=== PATIENT | male | born 1980 | race Caucasian/White ===

== ENCOUNTER → 2016-05-21 | Outpatient (CLI) | payer MEDICARE, OTHER ==
[~2016-05-21] MED LIST: ACETAMINOPHEN TAB 500 MG TAB PO ONE; LORATADINE 10 MG TAB PO ONE; SODIUM CHLORIDE 0.9% 250 ML in EMPTY BAG 1 BAG IV PRN; SODIUM CHLORIDE 0.9% 500 ML in EMPTY BAG 1 BAG IV PRN
[2016-05-21 11:49] LABS: Basophils # (A) 0.1 k/uL (0-0.2); Basophils % (A) 1 %; CH 25.8; CHCM 32.4; Eosinophils # (A) 0.5 k/uL (0-0.7); Eosinophils % (A) 8 %; HCT 40.5 % (39.0-53.0); HDW 2.82; Luc # (Auto) 0.11; Luc % (Auto) 2; Lymphocytes # (A) 1.6 k/uL (1.0-4.8); Lymphocytes % (A) 23 %; MCH 25.6 pg (25.0-35.0); MCV 79.9 fL (80.0-100.0); Mean Platelet Volume 7.8; Monocytes # (A) 0.4 k/uL (0-1.0); Monocytes % (A) 6 %; Neutrophils # (A) 4.1 k/uL (1.3-7.7); Neutrophils % (A) 61 %; RBC 5.07 m/uL (4.30-5.90); RDW 13.7 % (11.5-15.5); WBC 6.8 k/uL (3.8-10.6); WBC (Perox) 6.78
[2016-05-21 12:17] LABS: Anion Gap 13 mmol/L; Calcium 10.1 mg/dL (8.4-10.2); Carbon Dioxide 24 mmol/L (22-30); Chloride 102 mmol/L (98-107); Glucose 122 mg/dL (74-99); Non-African American GFR(MDRD) >60 (>60 ml/min/1.73 sqM); Sodium 139 mmol/L (137-145); Total Bilirubin 0.6 mg/dL (0.2-1.3); Total Protein 6.9 g/dL (6.3-8.2)
[2016-05-21 12:28] LABS: ALT 70 U/L (21-72); AST 71 U/L (17-59); Alkaline Phosphatase 74 U/L (38-126); Blood Urea Nitrogen 11 mg/dL (9-20); Potassium 4.5 mmol/L (3.5-5.1)
[2016-05-21 13:09] VITALS: BP 116/74; PULSE 81; RESP 18
== END | disposition home or self-care (01) ==
LOC: PROCWHC3 11:07
PROVIDERS: ATTEND Internal Medicine Gastroenterology
DX: K50.013 Crohn's disease of small intestine with fistula (principal)
CPT/HCPCS: 80053; 85025; 96413; 96415; J1745

== ENCOUNTER → 2016-07-02 | Outpatient (CLI) | payer MEDICARE, OTHER ==
[~2016-07-02] MED LIST changes: +ACETAMINOPHEN TAB 500 MG TAB PO NR; -ACETAMINOPHEN TAB 500 MG TAB PO ONE; +LORATADINE 10 MG TAB PO NR; -LORATADINE 10 MG TAB PO ONE
[2016-07-02 12:37] VITALS: TEMP 97.8
[2016-07-02 13:38] VITALS: RESP 16
[2016-07-02 14:24] VITALS: BP 109/69; PULSE 89
== END ==
LOC: PROCWHC3 12:16
PROVIDERS: ATTEND Internal Medicine Gastroenterology
DX: K50.013 Crohn's disease of small intestine with fistula (principal)
CPT/HCPCS: 96361; 96413; 96415; J1745

== ENCOUNTER → 2016-07-07 | Outpatient (CLI) | payer MEDICARE, OTHER ==
--- NOTE | 2016-07-07 21:34 | CONS ---
DATE OF CONSULTATION: REASON FOR CONSULTATION: Sleep apnea and nocturnal oxygen desaturations. Primary care physician is Dr. Ricardo Caal 36-year-old male patient with a complicated history of Crohn's disease requiring multiple bowel surgeries for complications of bowel perforation and fistula formation. The patient is known to me, I have taken care of him during his previous hospital stay for respiratory difficulties and bowel complications. He is suspected to have also diaphragmatic weakness, which is attributed to his bowel surgeries and multiple bowel interventions. He has also some mild bronchial asthma for which he is maintained on Qvar. Recently the patient was hospitalized for an acute bronchitis for which he has recovered and during his hospital stay he was having some nocturnal oxygen desaturations. As such, he was asked to come into the sleep center for a sleep evaluation. He is quite anxious at baseline. He ( ) some snoring yet. He has no witnessed apneas. No chronic hypersomnia or sleepiness. He grinds his teeth, and he has poor dental hygiene. He wakes up with a dry mouth. He goes to bed around 2:00 a.m. and wakes up between 8:00 a.m. in the morning and sometimes he sleeps up until noon. He does not keep a regular sleep-wake cycle. He is currently on disability and he spent most of his time in bed and as such, he has disturbed sleep schedule. On average, he takes around 6 hours of sleep. No sleepwalking. No sleeptalking. No parasomnias. No sleep paralysis. No major hypersomnia or sleepiness during the day. He does not fall asleep during undesired times. He has no leg edema in the lower extremities. No signs of right-sided heart failure. PAST MEDICAL HISTORY: 1. Complicated Crohn's disease. 2. Generalized anxiety disorder. 3. Hyperlipidemia. 4. Bronchial asthma. 5. Diabetes mellitus. 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 Removal of a rectum and creation of a J-pouch in October 2000, tonsillectomy and adenoidectomy in 2004, large incisional hernia repair and reversal of ostomy in November 2004, creation of ileostomy and release of adhesions on 07/23/2009. The patient has also had further release of adhesions on 02/03/2011 and he has had nasal septal reconstruction surgery on 04/20/2012. Vaccinations up-to-date, flu shot, pneumonia shot and tetanus shot. Outpatient medication list includes: 1. Promethazine on a p.r.n. basis. 2. Metoprolol 50 mg p.o. daily. 3. Ultram 100 mg p.o. daily as needed. 4. Diazepam 5 mg p.o. twice a day. 5. Zocor 20 mg p.o. daily. 6. Claritin 10 mg p.o. daily. 7. Lansoprazole 30 mg twice a day. 8. Qvar 80 mcg 2 puffs twice a day. 9. Remicade every 6 weeks. 10. Tradjenta 5 mg p.o. daily. 11. Pro-air inhaler. 12. Flonase nasal spray. 13. Cymbalta 60 mg p.o. daily. SOCIAL HISTORY: The patient is a nonsmoker, no history of alcohol, no history of IV drugs. FAMILY HISTORY: Noncontributory. Negative for any sleep breathing disorder. REVIEW OF SYSTEMS: Twelve-point review of systems was done. Positive findings as mentioned above in the history of present illness. He has chronic exertional dyspnea, chronic bowel difficulties as mentioned above. Recent bronchitis was also mention by the patient from which is completely recovered. His current vital signs are as follows: His temperature is 97.8, pulse 88, respirations 16, and blood pressure is 97/73, temperature 97.1. Height is 66 inches. Weight 166 and BMI is 26.7. Neck size 14-1/2 inches. [place] score is 11, saturation 95% on room air. GENERAL APPEARANCE: Calm, comfortable. HEENT: Poor dental hygiene. There is no goiter, neck masses. No thrush. LUNGS: Diminished breath sounds bilaterally especially in the lung bases. A few scattered expiratory wheeze. HEART: Heart sounds are regular rate and rhythm. Normal S1, S2, no S3. No murmurs. ABDOMEN: Scars of multiple abdominal surgery over the anterior abdominal wall. No direct tenderness, no rebound or guarding. He has stoma. EXTREMITIES: There is no edema. No cyanosis, or clubbing. IMPRESSION: 1. Suspect nocturnal oxygen desaturations/hypoventilation with possible sleep breathing disorder. The patient will need further investigation. 2. Bronchial asthma. 3. 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 4. Complicated Crohn's disease with multiple abdominal surgeries as mentioned. 5. Hyperlipidemia. 6. Generalized anxiety disorder, maintained on a combination of Cymbalta and diazepam. 7. Diabetes mellitus. PLAN: 1. Proceed with a home sleep study to evaluate for nocturnal apneas, hypopneas or desaturations. 2. Will review the results and make further recommendations based on the findings.
== END | disposition home or self-care (01) ==
LOC: SLEEP 14:58
PROVIDERS: ATTEND Internal Medicine Critical Care Medicine
DX: G47.33 Obstructive sleep apnea (adult) (pediatric) (principal); F41.1 Generalized anxiety disorder; E78.5 Hyperlipidemia, unspecified; G47.10 Hypersomnia, unspecified; E11.9 Type 2 diabetes mellitus without complications; K50.90 Crohn's disease, unspecified, without complications; J45.909 Unspecified asthma, uncomplicated; Z79.84 Long term (current) use of oral hypoglycemic drugs; Z79.899 Other long term (current) drug therapy
CPT/HCPCS: 99211; 99214

== ENCOUNTER → 2016-08-13 | Outpatient (CLI) | payer MEDICARE, OTHER ==
[~2016-08-13] MED LIST changes: -ACETAMINOPHEN TAB 500 MG TAB PO NR; +ACETAMINOPHEN TAB 500 MG TAB PO ONE; -LORATADINE 10 MG TAB PO NR; +LORATADINE 10 MG TAB PO ONE
[2016-08-13 10:07] VITALS: RESP 18; TEMP 97.9
[2016-08-13 11:43] VITALS: BP 97/64; PULSE 67
== END | disposition home or self-care (01) ==
LOC: PROCWHC3 09:46
PROVIDERS: ATTEND Internal Medicine Gastroenterology
DX: K50.013 Crohn's disease of small intestine with fistula (principal)
CPT/HCPCS: 96361; 96413; 96415; J1745

== ENCOUNTER → 2016-08-17 | Day surgery (SDC) | payer MEDICARE, OTHER ==
[~2016-08-17] MED LIST changes: -ACETAMINOPHEN TAB 500 MG TAB PO ONE; +GLUCAGON 1 MG/ML VIAL IM STA; -LORATADINE 10 MG TAB PO ONE; -SODIUM CHLORIDE 0.9% 250 ML in EMPTY BAG 1 BAG IV PRN; -SODIUM CHLORIDE 0.9% 500 ML in EMPTY BAG 1 BAG IV PRN
[2016-08-17 09:54] VITALS: BP 130/82; PULSE 86; RESP 14; TEMP 98.1
[2016-08-17 09:55] LABS: Blood Urea Nitrogen 11 mg/dL (9-20); Non-African American GFR(MDRD) >60 (>60 ml/min/1.73 sqM)
--- NOTE | 2016-08-18 21:40 | MR ---
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 Crohn's disease. Technique: Multiplanar, multisequence images of the abdomen and pelvis before and after administratio n of 15 mL IV MultiHance. 2 bottles of 300 mL VoLumen and 300 mL water was administered orally. Patie nt was unable to ingest the last bottle of VoLumen. Exam cannot be performed in the prone position du e to patient's ostomy. FINDINGS: Patient's right lower quadrant ileostomy is again demonstrated status post colectomy. The ileostomy p arastomal hernia appears to have enlarged previously measuring 8.9 x 6.7 cm and now measuring 10.4 x 7.7 cm. Redemonstrated is the small focal 1.6 cm focal outpouching along the right lateral aspect of the ileo stomy loop just as it traverses across the abdominal wall musculature, coronal image 174 series 701 a nd axial image 89 series 801. A subtle linear enhancing tract is again noted extending from here to t he to the skin surface at the right lateral margin of the parastomal hernia. The ileostomy loop shows an area of close contact to the exterior surface of the parastomal hernia ju st distally, located to the right of the stoma which could represent a second tiny fistula, coronal s eries 701, image 90. Some patulous upper mid abdominal anterior small bowel loops are unchanged measuring up to 3.8 cm. There is respiratory motion artifact due to supine imaging with clustered, collapsed jejunal loops in the far left abdomen limiting their evaluation. There are a couple left upper quadrant small bowel loops that show mucosal enhancement to a slightly greater degree then other surrounding small bowel loops, for example, axial image 59 of series 901. N o alejandro bowel wall thickening is identified. Mesenteric lymphadenopathy measures up to 1 cm, more numerous within the right lower quadrant, relati vely unchanged from prior. Visualized gallbladder, left kidney, spleen, pancreas, and adrenal glands show no gross abnormality. Redemonstrated 2 cm cyst upper pole right kidney. IMPRESSION: 1. The curvilinear area of enhancement extending from the right lateral aspect of the ileostomy loop to the skin surface along the lateral margin of the parastomal hernia is again seen though the degree of enhancement has decreased. Correlate for persistent enterocutaneous fistula versus interval fistu la healing with scar. 2. Just distally along the ileostomy loop, there is an area of contact to the exterior surface of the parastomal hernia which could represent a second tiny enterocutaneous fistula. 3. Interval enlargement of the patient's parastomal hernia now measuring 10.4 cm versus 8.9 cm, previ ously. 4. Jejunal loops in the left abdomen are clustered and collapsed limiting their evaluation. A couple short segments show slightly greater degree of mucosal enhancement than adjacent bowel and mild activ e inflammation is difficult to exclude here. There is no alejandro abnormal bowel wall thickening.
== END ==
LOC: RADMRIMAIN 09:10
PROVIDERS: ATTEND Internal Medicine Gastroenterology
DX: K63.2 Fistula of intestine (principal); Z93.2 Ileostomy status
CPT/HCPCS: 82565; 84520; 72197; 74183; J1610; A9577

== ENCOUNTER → 2016-09-24 | Outpatient (CLI) | payer MEDICARE, OTHER ==
[~2016-09-24] MED LIST changes: +ACETAMINOPHEN TAB 500 MG TAB PO ONE; -GLUCAGON 1 MG/ML VIAL IM STA; +LORATADINE 10 MG TAB PO ONE; +SODIUM CHLORIDE 0.9% 250 ML in EMPTY BAG 1 BAG IV PRN; +SODIUM CHLORIDE 0.9% 500 ML in EMPTY BAG 1 BAG IV PRN
[2016-09-24 10:04] VITALS: TEMP 97.9
[2016-09-24 11:30] VITALS: BP 112/66; PULSE 59; RESP 15
== END ==
LOC: PROCWHC3 09:45
PROVIDERS: ATTEND Internal Medicine Gastroenterology
DX: Z51.11 Encounter for antineoplastic chemotherapy (principal); K50.013 Crohn's disease of small intestine with fistula
CPT/HCPCS: 96413; 96415; J1745

== ENCOUNTER → 2016-11-05 | Outpatient (CLI) | payer MEDICARE, OTHER ==
[~2016-11-05] MED LIST changes: +ACETAMINOPHEN TAB 500 MG TAB PO NR; -ACETAMINOPHEN TAB 500 MG TAB PO ONE; +LORATADINE 10 MG TAB PO NR; -LORATADINE 10 MG TAB PO ONE
[2016-11-05 12:37] VITALS: TEMP 98
[2016-11-05 13:57] VITALS: BP 111/73; PULSE 75; RESP 18
== END ==
LOC: PROCWHC3 11:42
PROVIDERS: ATTEND Internal Medicine Gastroenterology
DX: Z51.11 Encounter for antineoplastic chemotherapy (principal); K50.013 Crohn's disease of small intestine with fistula
CPT/HCPCS: 96413; 96415; J1745

== ENCOUNTER → 2016-12-31 | Outpatient (CLI) | payer MEDICARE, OTHER ==
[~2016-12-31] MED LIST changes: -ACETAMINOPHEN TAB 500 MG TAB PO NR; +ACETAMINOPHEN TAB 500 MG TAB PO PRN; -LORATADINE 10 MG TAB PO NR; -SODIUM CHLORIDE 0.9% 250 ML in EMPTY BAG 1 BAG IV PRN
[2016-12-31 11:25] VITALS: TEMP 98.2
[2016-12-31 13:42] VITALS: BP 103/66; PULSE 85; RESP 18
== END | disposition home or self-care (01) ==
LOC: PROCWHC3 11:04
PROVIDERS: ATTEND Internal Medicine Gastroenterology
DX: K50.013 Crohn's disease of small intestine with fistula (principal)
CPT/HCPCS: 96413; 96415; J1745

== ENCOUNTER → 2017-02-11 | Outpatient (CLI) | payer MEDICARE, OTHER ==
[~2017-02-11] MED LIST changes: -ACETAMINOPHEN TAB 500 MG TAB PO PRN; +INFLIXIMAB-DYYB 800 MG in SODIUM CHLORIDE 0.9% 250 ML IV ONE
[2017-02-11 11:10] VITALS: TEMP 97.5
[2017-02-11 11:32] LABS: Basophils # (A) 0.1 k/uL (0-0.2); Basophils % (A) 1 %; CH 25.6; CHCM 31.1; Eosinophils # (A) 0.5 k/uL (0-0.7); Eosinophils % (A) 6 %; HCT 42.5 % (39.0-53.0); HDW 2.66; HGB 13.7 gm/dL (13.0-17.5); Hypochromasia Slight; Luc # (Auto) 0.25; Luc % (Auto) 3; Lymphocytes # (A) 1.4 k/uL (1.0-4.8); Lymphocytes % (A) 19 %; MCH 26.6 pg (25.0-35.0); MCHC 32.2 g/dL (31.0-37.0); MCV 82.5 fL (80.0-100.0); Mean Platelet Volume 7.2; Monocytes # (A) 0.5 k/uL (0-1.0); Monocytes % (A) 7 %; Neutrophils # (A) 4.6 k/uL (1.3-7.7); Neutrophils % (A) 63 %; RBC 5.15 m/uL (4.30-5.90); RDW 14.1 % (11.5-15.5); WBC 7.2 k/uL (3.8-10.6); WBC (Perox) 7.21
[2017-02-11 12:08] LABS: ALT 109 U/L (21-72); AST 133 U/L (17-59); Alkaline Phosphatase 92 U/L (38-126); Anion Gap 14 mmol/L; Blood Urea Nitrogen 15 mg/dL (9-20); C Reactive Protein 14.4 mg/L (<10.0); Carbon Dioxide 23 mmol/L (22-30); Chloride 102 mmol/L (98-107); Glucose 162 mg/dL (74-99); Non-African American GFR(MDRD) >60 (>60 ml/min/1.73 sqM); Potassium 4.5 mmol/L (3.5-5.1); Sodium 139 mmol/L (137-145); Total Bilirubin 0.5 mg/dL (0.2-1.3); Total Protein 7.5 g/dL (6.3-8.2)
[2017-02-11 12:21] VITALS: RESP 18
[2017-02-11 12:52] VITALS: BP 112/70; PULSE 81
[2017-02-11 12:55] LABS: Erythrocyte Sedimentation Rate 15 mm/hr (0-15)
== END | disposition home or self-care (01) ==
LOC: PROCWHC3 10:56
PROVIDERS: ATTEND Internal Medicine Gastroenterology
DX: K50.013 Crohn's disease of small intestine with fistula (principal)
CPT/HCPCS: 80053; 85652; 85025; 86140; 96413; 96415; 36415; Q5102

== ENCOUNTER → 2017-03-24 | Outpatient (CLI) | payer MEDICARE, OTHER ==
[2017-03-31 15:11] LABS: Mis test requested (Blood) Infliximab Quant
== END | disposition home or self-care (01) ==
LOC: LABWHC1 16:36
PROVIDERS: ATTEND Internal Medicine
DX: K50.913 Crohn's disease, unspecified, with fistula (principal); R19.7 Diarrhea, unspecified; R19.8 Other specified symptoms and signs involving the digestive system and abdomen; Z93.2 Ileostomy status
CPT/HCPCS: 36415; 80299

== ENCOUNTER → 2017-03-25 | Outpatient (CLI) | payer MEDICARE, OTHER ==
[2017-03-25 11:23] VITALS: TEMP 97.5
[2017-03-25 11:38] LABS: Anisocytosis Slight; CH 25.5; CHCM 30.8; HCT 41.9 % (39.0-53.0); HDW 2.37; HGB 13.4 gm/dL (13.0-17.5); Hypochromasia Slight; MCH 26.6 pg (25.0-35.0); MCV 83.1 fL (80.0-100.0); Mean Platelet Volume 7.4; RBC 5.05 m/uL (4.30-5.90); WBC 7.9 k/uL (3.8-10.6)
[2017-03-25 11:49] LABS: ALT 132 U/L (21-72); AST 129 U/L (17-59); Alkaline Phosphatase 84 U/L (38-126); Anion Gap 11 mmol/L; Blood Urea Nitrogen 19 mg/dL (9-20); C Reactive Protein 5.4 mg/L (<10.0); Calcium 9.8 mg/dL (8.4-10.2); Carbon Dioxide 25 mmol/L (22-30); Chloride 103 mmol/L (98-107); Glucose 151 mg/dL (74-99); Non-African American GFR(MDRD) >60 (>60 ml/min/1.73 sqM); Potassium 3.8 mmol/L (3.5-5.1); Sodium 139 mmol/L (137-145); Total Bilirubin 0.3 mg/dL (0.2-1.3); Total Protein 7.3 g/dL (6.3-8.2)
[2017-03-25 12:25] VITALS: PULSE 72
[2017-03-25 12:56] LABS: Erythrocyte Sedimentation Rate 12 mm/hr (0-15)
[2017-03-25 13:15] VITALS: BP 110/65; RESP 16
== END | disposition home or self-care (01) ==
LOC: PROCWHC3 11:16
PROVIDERS: ATTEND Internal Medicine Gastroenterology
DX: K50.013 Crohn's disease of small intestine with fistula (principal)
CPT/HCPCS: 80053; 85652; 85027; 86140; 96413; 96415; 36415; Q5102

== ENCOUNTER → 2017-05-28 | Outpatient (CLI) | payer MEDICARE, OTHER ==
[2017-05-28 17:12] LABS: Anisocytosis Slight; Basophils # (A) 0.1 k/uL (0-0.2); Basophils % (A) 1 %; Eosinophils # (A) 0.2 k/uL (0-0.7); Eosinophils % (A) 2 %; HCT 43.4 % (39.0-53.0); HGB 13.4 gm/dL (13.0-17.5); Hypochromasia Slight; Lymphocytes # (A) 2.2 k/uL (1.0-4.8); Lymphocytes % (A) 23 %; MCH 27.1 pg (25.0-35.0); MCHC 30.8 g/dL (31.0-37.0); Mean Platelet Volume 7.5; Monocytes # (A) 0.6 k/uL (0-1.0); Monocytes % (A) 6 %; Neutrophils # (A) 5.9 k/uL (1.3-7.7); Neutrophils % (A) 64 %; Platelet Count 432 k/uL (150-450); RBC 4.92 m/uL (4.30-5.90); WBC 9.2 k/uL (3.8-10.6)
[2017-05-28 17:17] LABS: MCV 88.2 fL (80.0-100.0)
[2017-05-28 17:42] LABS: ALT 45 U/L (21-72); AST 27 U/L (17-59); Albumin 4.3 g/dL (3.5-5.0); Alkaline Phosphatase 71 U/L (38-126); Anion Gap 17 mmol/L; Blood Urea Nitrogen 13 mg/dL (9-20); Calcium 10.1 mg/dL (8.4-10.2); Carbon Dioxide 24 mmol/L (22-30); Chloride 100 mmol/L (98-107); Glucose 143 mg/dL (74-99); Potassium 3.7 mmol/L (3.5-5.1); Sodium 141 mmol/L (137-145); Total Bilirubin 0.4 mg/dL (0.2-1.3); Total Protein 7.5 g/dL (6.3-8.2)
== END | disposition home or self-care (01) ==
LOC: LABWHC1 16:30
PROVIDERS: ATTEND Internal Medicine
DX: K50.913 Crohn's disease, unspecified, with fistula (principal); Z51.81 Encounter for therapeutic drug level monitoring
CPT/HCPCS: 36415; 80053; 85025

== ENCOUNTER → 2017-06-03 | Outpatient (CLI) | payer MEDICARE, OTHER ==
[2017-06-03 12:04] VITALS: TEMP 98
[2017-06-03 12:46] VITALS: RESP 14
[2017-06-03 13:42] VITALS: BP 108/70; PULSE 85
== END | disposition home or self-care (01) ==
LOC: PROCWHC3 12:00
PROVIDERS: ATTEND Internal Medicine Gastroenterology
DX: K50.013 Crohn's disease of small intestine with fistula (principal)
CPT/HCPCS: 96413; 96415; Q5102

== ENCOUNTER → 2017-07-15 | Outpatient (CLI) | payer MEDICARE, OTHER ==
[2017-07-15 12:43] VITALS: RESP 16
[2017-07-15 13:14] LABS: Basophils # (A) 0.1 k/uL (0-0.2); Basophils % (A) 1 %; Eosinophils # (A) 0.2 k/uL (0-0.7); Eosinophils % (A) 3 %; HCT 38.1 % (39.0-53.0); HGB 12.7 gm/dL (13.0-17.5); Lymphocytes # (A) 1.4 k/uL (1.0-4.8); Lymphocytes % (A) 19 %; MCH 28.5 pg (25.0-35.0); MCHC 33.5 g/dL (31.0-37.0); Mean Platelet Volume 7.5; Monocytes # (A) 0.5 k/uL (0-1.0); Monocytes % (A) 7 %; Neutrophils # (A) 5.1 k/uL (1.3-7.7); Neutrophils % (A) 70 %; Platelet Count 302 k/uL (150-450); RBC 4.48 m/uL (4.30-5.90); RDW 15.2 % (11.5-15.5); WBC 7.4 k/uL (3.8-10.6)
[2017-07-15 13:22] LABS: ALT 29 U/L (21-72); AST 54 U/L (17-59); Alkaline Phosphatase 52 U/L (38-126); Anion Gap 13 mmol/L; Blood Urea Nitrogen 13 mg/dL (9-20); C Reactive Protein 8.3 mg/L (<10.0); Calcium 8.2 mg/dL (8.4-10.2); Carbon Dioxide 28 mmol/L (22-30); Chloride 101 mmol/L (98-107); Glucose 165 mg/dL (74-99); Potassium 3.5 mmol/L (3.5-5.1); Sodium 142 mmol/L (137-145); Total Bilirubin 0.4 mg/dL (0.2-1.3); Total Protein 6.6 g/dL (6.3-8.2)
[2017-07-15 14:19] VITALS: BP 108/70; PULSE 85
[2017-07-15 15:29] LABS: Erythrocyte Sedimentation Rate 18 mm/hr (0-15)
== END ==
LOC: PROCWHC3 12:03
PROVIDERS: ATTEND Internal Medicine Gastroenterology
DX: K50.013 Crohn's disease of small intestine with fistula (principal)
CPT/HCPCS: 80053; 85652; 85025; 86140; 96413; 96415; 36415; Q5102

== ENCOUNTER → 2017-08-24 | Outpatient (CLI) | payer MEDICARE, OTHER ==
[2017-08-24 15:26] LABS: Cholesterol 202 mg/dL (<200); HDL Cholesterol 61 mg/dL (40-60); LDL Cholesterol,Calculated 87 mg/dL (0-99); Triglycerides 268 mg/dL (<150)
== END | disposition home or self-care (01) ==
LOC: LABWHC1 14:10
PROVIDERS: ATTEND Family Medicine
DX: E11.9 Type 2 diabetes mellitus without complications (principal)
CPT/HCPCS: 36415; 80061

== ENCOUNTER → 2017-08-26 | Outpatient (CLI) | payer MEDICARE, OTHER ==
[2017-08-26 12:37] VITALS: TEMP 98.5
[2017-08-26 13:48] VITALS: BP 104/68; PULSE 72; RESP 16
== END | disposition home or self-care (01) ==
LOC: PROCWHC3 12:00
PROVIDERS: ATTEND Internal Medicine Gastroenterology
DX: K50.013 Crohn's disease of small intestine with fistula (principal)
CPT/HCPCS: 96413; 96415; Q5103

== ENCOUNTER → 2017-10-07 | Outpatient (CLI) | payer MEDICARE, OTHER ==
[~2017-10-07] MED LIST changes: +INFLIXIMAB-DYYB 800 MG in SODIUM CHLORIDE 0.9% 250 ML IV NR; -INFLIXIMAB-DYYB 800 MG in SODIUM CHLORIDE 0.9% 250 ML IV ONE
[2017-10-07 13:31] VITALS: TEMP 97.8
[2017-10-07 13:51] LABS: Basophils # (A) 0.1 k/uL (0-0.2); Basophils % (A) 1 %; Eosinophils # (A) 0.3 k/uL (0-0.7); Eosinophils % (A) 5 %; HCT 42.2 % (39.0-53.0); HGB 14.2 gm/dL (13.0-17.5); Lymphocytes # (A) 1.2 k/uL (1.0-4.8); Lymphocytes % (A) 21 %; MCH 29.1 pg (25.0-35.0); MCHC 33.7 g/dL (31.0-37.0); MCV 86.4 fL (80.0-100.0); Mean Platelet Volume 6.9; Monocytes # (A) 0.5 k/uL (0-1.0); Monocytes % (A) 9 %; Neutrophils # (A) 3.4 k/uL (1.3-7.7); Neutrophils % (A) 60 %; Platelet Count 336 k/uL (150-450); RBC 4.88 m/uL (4.30-5.90); RDW 14.2 % (11.5-15.5); WBC 5.6 k/uL (3.8-10.6)
[2017-10-07 14:14] LABS: ALT 43 U/L (21-72); AST 53 U/L (17-59); Albumin 4.4 g/dL (3.5-5.0); Alkaline Phosphatase 60 U/L (38-126); Anion Gap 16 mmol/L; Blood Urea Nitrogen 14 mg/dL (9-20); C Reactive Protein <5.0 mg/L (<10.0); Carbon Dioxide 22 mmol/L (22-30); Chloride 101 mmol/L (98-107); Glucose 137 mg/dL (74-99); Potassium 4.2 mmol/L (3.5-5.1); Sodium 139 mmol/L (137-145); Total Bilirubin 0.4 mg/dL (0.2-1.3); Total Protein 6.9 g/dL (6.3-8.2)
[2017-10-07 15:05] VITALS: BP 107/65; PULSE 73; RESP 18
[2017-10-07 16:38] LABS: Erythrocyte Sedimentation Rate 18 mm/hr (0-15)
== END | disposition home or self-care (01) ==
LOC: PROCWHC3 13:02
PROVIDERS: ATTEND Internal Medicine Gastroenterology
DX: K50.013 Crohn's disease of small intestine with fistula (principal)
CPT/HCPCS: 80053; 85652; 85025; 86140; 96413; 96415; Q5103

== ENCOUNTER → 2017-12-07 | Outpatient (CLI) | payer MEDICARE, OTHER | END | disposition home or self-care (01) | LOC: LABWHC1 13:18 | PROVIDERS: ATTEND Internal Medicine | DX: K50.913 Crohn's disease, unspecified, with fistula (principal) | CPT/HCPCS: 36415 ==

== ENCOUNTER 2018-03-28 11:14 | Day surgery (SDC) | payer MEDICARE, OTHER ==
[2018-03-23 13:24] VITALS: BMI 26.6
[~2018-03-28 11:14] MED LIST changes: +DEXAMETHASONE SOD PHOSPHATE 10 MG/ML 1 ML VIAL IV ONE; -INFLIXIMAB-DYYB 800 MG in SODIUM CHLORIDE 0.9% 250 ML IV NR; +LACTATED RINGERS 1,000 ML IV SCH; +MIDAZOLAM 2 MG/2 ML VIAL IV PRN; +ONDANSETRON 4 MG/2 ML VIAL IVP ONE; +SCOPOLAMINE 1.5MG/72HR PATCH TRANSDERM ONE; -SODIUM CHLORIDE 0.9% 500 ML in EMPTY BAG 1 BAG IV PRN; +fentaNYL (PF) 50 MCG/ML 2 ML AMP IV PRN
[2018-03-28 11:48] VITALS: RESP 16; TEMP 97.1
[2018-03-28] MEDS ORDERED: LIDOCAINE 1% 20 ML VIAL (10MG/ML) FOR IV START INTRADERMA ONE (11:50)
[2018-03-28 11:52] LABS: Glucose,Whole Blood 130 mg/dL (75-99)
[2018-03-28] MEDS ORDERED: fentaNYL (PF) 50 MCG/ML 2 ML AMP ONE (12:35)
[2018-03-28] MEDS ORDERED: LIDOCAINE 1% INJ 10MG/ML (20 ML MDV) ONE (12:35)
[2018-03-28] MEDS ORDERED: PROPOFOL 10 MG/ML 20 ML VIAL IV ONE (12:35)
[2018-03-28] MEDS ORDERED: MIDAZOLAM 2 MG/2 ML VIAL ONE (12:35)
[2018-03-28] MEDS ORDERED: BUPIVACAINE (PF) 0.25% 30 ML VIAL SQ ONE (12:41)
[2018-03-28] MEDS ORDERED: LIDOCAINE 2% INJ 20 MG/ML SQ ONE (12:41)
[2018-03-28 13:26] VITALS: BP 100/63; PULSE 74
--- NOTE | 2018-03-28 17:18 | OP ---
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 FINAL DIAGNOSIS: Status post partial amputation right middle finger tip with clinical nail deformity. PROCEDURE PERFORMED: Permanent nail ablation, right middle finger. PROCEDURE: The patient is taken operative suite, given IV sedation. I did a digital block to his right middle finger with combination of Xylocaine and Marcaine both without epinephrine. His hand was then prepped and draped in usual manner. A Ekaterina drain was used as a proximal tourniquet. The proximal fold was incised on either corner in an oblique manner. It was then dissected and retracted proximally. This exposed the entire germinal cell matrix. This was then incised down to the periosteum and discarded. A small rongeur was used to further debride the area in an attempt to remove all possible areas of nail growth. Collateral ligament release was done at the DIP joint in an attempt to correct the flexion contracture. This was fixed beyond this release and therefore was abandoned. The tourniquet was released. Hemostasis was satisfactory. The proximal nail fold was then sewn to the sterile matrix with interrupted 5-0 nylon suture. Soft bulky dressing was applied. He is taken recovery room in satisfactory condition. MMODL / IJN: [id number] /
== END 2018-03-28 13:59 ==
LOC: OR 11:14
PROVIDERS: ATTEND Orthopaedic Surgery Hand Surgery
DX: L60.8 Other nail disorders (principal); R68.3 Clubbing of fingers; I10 Essential (primary) hypertension; E11.9 Type 2 diabetes mellitus without complications; Z79.84 Long term (current) use of oral hypoglycemic drugs; H91.90 Unspecified hearing loss, unspecified ear; H40.9 Unspecified glaucoma; J98.4 Other disorders of lung; K21.9 Gastro-esophageal reflux disease without esophagitis; K50.90 Crohn's disease, unspecified, without complications; F41.9 Anxiety disorder, unspecified; H81.09 Meniere's disease, unspecified ear; J45.909 Unspecified asthma, uncomplicated; Z79.51 Long term (current) use of inhaled steroids; Z79.899 Other long term (current) drug therapy; Z88.5 Allergy status to narcotic agent; Z88.0 Allergy status to penicillin; Z88.2 Allergy status to sulfonamides; Z88.8 Allergy status to other drugs, medicaments and biological substances; Z88.6 Allergy status to analgesic agent; Z88.1 Allergy status to other antibiotic agents; Z91.041 Radiographic dye allergy status
CPT/HCPCS: 11730; J2001 ×2; J2250; J2405; J3010; J2704

== ENCOUNTER → 2018-07-15 | Outpatient (CLI) | payer MEDICARE, OTHER ==
[2018-07-15 16:50] LABS: Basophils # (A) 0.1 k/uL (0-0.2); Basophils % (A) 1 %; Eosinophils # (A) 0.3 k/uL (0-0.7); Eosinophils % (A) 3 %; HGB 13.7 gm/dL (13.0-17.5); Hypochromasia Slight; Lymphocytes # (A) 2.3 k/uL (1.0-4.8); Lymphocytes % (A) 20 %; MCH 28.1 pg (25.0-35.0); MCHC 31.7 g/dL (31.0-37.0); MCV 88.6 fL (80.0-100.0); Mean Platelet Volume 6.2; Monocytes # (A) 0.9 k/uL (0-1.0); Monocytes % (A) 8 %; Neutrophils # (A) 7.5 k/uL (1.3-7.7); Neutrophils % (A) 66 %; Platelet Count 457 k/uL (150-450); RBC 4.85 m/uL (4.30-5.90); RDW 14.6 % (11.5-15.5); WBC 11.4 k/uL (3.8-10.6)
[2018-07-16 02:06] LABS: ALT 19 U/L (10-49); AST 25 U/L (14-35); Albumin/Globulin Ratio 1.79 (1.60-3.17); Alkaline Phosphatase 63 U/L (41-126); C Reactive Protein <0.4 mg/dL (0.0-0.8); Calcium 9.6 mg/dL (8.7-10.3); Carbon Dioxide 23.2 mmol/L (21.6-31.8); Chloride 103 mmol/L (96-109); Globulin 2.4 g/dL (1.6-3.3); Glucose 110 mg/dL (70-110); Potassium 3.9 mmol/L (3.5-5.5); Sodium 138 mmol/L (135-145); Total Bilirubin 0.2 mg/dL (0.3-1.2); Total Protein 6.7 g/dL (6.2-8.2)
== END ==
LOC: LABWHC1 16:27
PROVIDERS: ATTEND Internal Medicine
DX: K50.913 Crohn's disease, unspecified, with fistula (principal)
CPT/HCPCS: 36415; 80053; 85025; 86140

== ENCOUNTER → 2019-02-23 | Outpatient (CLI) | payer MEDICARE, OTHER ==
[~2019-02-23] MED LIST changes: -DEXAMETHASONE SOD PHOSPHATE 10 MG/ML 1 ML VIAL IV ONE; +INFLIXIMAB-DYYB 700 MG in SODIUM CHLORIDE 0.9% 250 ML IV NR; -LACTATED RINGERS 1,000 ML IV SCH; -MIDAZOLAM 2 MG/2 ML VIAL IV PRN; -ONDANSETRON 4 MG/2 ML VIAL IVP ONE; -SCOPOLAMINE 1.5MG/72HR PATCH TRANSDERM ONE; +SODIUM CHLORIDE 0.9% 500 ML 500 ML in EMPTY BAG 1 BAG IV PRN; -fentaNYL (PF) 50 MCG/ML 2 ML AMP IV PRN
[2019-02-23 10:45] VITALS: RESP 18; TEMP 98.3
[2019-02-23 11:32] VITALS: PULSE 105
[2019-02-23 12:01] VITALS: BP 106/68
== END | disposition home or self-care (01) ==
LOC: PROCWHC3 10:03
PROVIDERS: ATTEND Internal Medicine
DX: K50.919 Crohn's disease, unspecified, with unspecified complications (principal)
CPT/HCPCS: 96413; 96415; Q5103

== ENCOUNTER 2019-03-04 23:08 | Emergency (ER) | payer MEDICARE, OTHER ==
[2019-03-04 23:16] VITALS: RESP 18
[2019-03-04] MEDS ORDERED: SODIUM CHLORIDE 0.9% 1,000 ML IV STA (23:35)
[2019-03-04] MEDS ORDERED: PIPERACILLIN-TAZOBACTAM 3.375 GM in SODIUM CHLORIDE 0.9% 100 ML IVPB STA (23:38)
[2019-03-05 00:10] LABS: Anisocytosis Moderate; HCT 34.7 % (39.0-53.0); HGB 11.1 gm/dL (13.0-17.5); Hypochromasia Moderate; MCH 27.4 pg (25.0-35.0); MCV 85.7 fL (80.0-100.0); Platelet Count 417 k/uL (150-450); Poikilocytosis Slight; RBC 4.05 m/uL (4.30-5.90); RDW 20.1 % (11.5-15.5); WBC 8.2 k/uL (3.8-10.6)
[2019-03-05 00:12] LABS: Appearance,Urine Clear (Clear); Bilirubin,Urine Negative (Negative); Blood,Urine Negative (Negative); Color,Urine Yellow; Glucose,Urine (UA) 4+ (Negative); Ketones,Urine Negative (Negative); Leukocyte Esterase,Urine Negative (Negative); Nitrite,Urine Negative (Negative); Protein,Urine Trace (Negative); Specific Gravity,Urine 1.026 (1.001-1.035)
[2019-03-05] MEDS ORDERED: ACETAMINOPHEN TAB 325 MG TAB PO STA (00:17)
[2019-03-05 00:20] LABS: ALT 31 U/L (21-72); AST 30 U/L (17-59); African American GFR (CKD) >90 (>60 ml/min/1.73 sqM); Albumin 3.6 g/dL (3.5-5.0); Alkaline Phosphatase 81 U/L (38-126); Amylase 37 U/L (30-110); Anion Gap 11 mmol/L; Blood Urea Nitrogen 14 mg/dL (9-20); Calcium 9.4 mg/dL (8.4-10.2); Carbon Dioxide 29 mmol/L (22-30); Chloride 95 mmol/L (98-107); Glucose 239 mg/dL (74-99); Potassium 3.2 mmol/L (3.5-5.1); Sodium 135 mmol/L (137-145); Total Bilirubin 0.2 mg/dL (0.2-1.3); Total Protein 6.1 g/dL (6.3-8.2)
[2019-03-05 00:28] LABS: Band Neutrophils % 2 %; Basophils # (M) 0.08 k/uL (0-0.2); Eosinophils # (M) 0.25 k/uL (0-0.7); Lymphocytes # (M) 1.07 k/uL (1.0-4.8); Monocytes # (M) 0.74 k/uL (0-1.0); Neutrophils % (M) 72 %; Nucleated Red Blood Cells 0 /100 WBC (0-0); Total Cells Counted 100
[2019-03-05 00:29] LABS: Polychromasia Present
[2019-03-05] MEDS ORDERED: VANCOMYCIN IV PER PHARMACY 1 EACH MISC MISCELLANE PRN (00:33)
[2019-03-05] MEDS ORDERED: VANCOMYCIN 1,250 MG in SODIUM CHLORIDE 0.9% 250 ML IVPB STA (00:35)
[2019-03-05] MEDS ORDERED: POTASSIUM CHLORIDE ER 20 MEQ TAB.ER PO STA ×2 (00:59→01:00)
[2019-03-05] MEDS ORDERED: INSULIN ASPART (NovoLOG) 100 UNIT/ML VIAL SQ ONE (01:07)
[2019-03-05] MEDS ORDERED: SODIUM CHLORIDE 0.9% 1,000 ML IV STA (01:10)
[2019-03-05 01:51] LABS: Glucose,Whole Blood 165 mg/dL (75-99)
--- NOTE | 2019-03-05 02:07 | ED ---
General Adult HPI - General Source: patient, RN notes reviewed, old records reviewed Mode of arrival: ambulatory Limitations: no limitations <Jayce Barba - Last Filed: 03/05/19 02:05> <Primitivo Garcia - Last Filed: 03/05/19 21:41> - General Chief complaint: Wound/Laceration Stated complaint: Wound Care Time Seen by Provider: 03/04/19 23:20 - History of Present Illness Initial comments: 38-year-old male patient with past history significant for Crohn's presents to ED for evaluation of abdomen. Patient does have a ileostomy and a known fistula. Patient presents to ED with chief complaint of redness, fluctuance around the ostomy site. Patient reports this is ongoing for approximately 5 days. Denies any other constitutional symptoms. Denies any other complaints. Systemic: Pt denies fatigue, fever/chills, rash. Pt denies weakness, night sweats, weight loss. Neuro: Pt denies headache, visual disturbances, syncope or pre-syncope. HEENT: Pt denies ocular discharge or irritation, otalgia, rhinorrhea, pharyngitis or notable lymphadenopathy. Cardiopulmonary: Pt denies chest pain, SOB, heart palpitations, dyspnea on exertion. Abdominal/GI: Pt denies n/v/d. : Pt denies dysuria, burning w/ urination, frequency/urgency. Denies new onset urinary or bowel incontinence. MSK: Pt denies myalgia, loss of strength or function in extremities. Neuro: Pt denies new onset weakness, paresthesias. (Jayce Barba) - Related Data Home Medications Medication Instructions Recorded Confirmed Diazepam 10 mg PO BID 09/29/13 03/01/19 Loratadine [Claritin] 10 mg PO DAILY 09/29/13 03/01/19 Metoprolol Tartrate [Lopressor] 25 mg PO QAM 09/29/13 03/01/19 Simvastatin [Zocor] 20 mg PO HS 09/29/13 03/01/19 Ergocalciferol [Vitamin D2] 50,000 unit PO Q30D 08/11/14 03/01/19 Albuterol Sulfate [Proair Hfa] 1 - 2 puff INHALATION Q6HR PRN 12/19/15 03/01/19 DULoxetine HCL [Cymbalta] 30 mg PO HS 04/09/16 03/01/19 Travoprost [Travatan Z 0.004%] 1 drop BOTH EYES HS 02/11/17 03/01/19 sitaGLIPtin [Januvia] 100 mg PO DAILY 02/11/17 03/01/19 Budesonide/Formoterol Fumarate 2 puff INHALATION BID 10/07/17 03/01/19 [Symbicort 80-4.5 Mcg Inhaler] Nystatin 100,000 Unit/gm Powd 1 applic TOPICAL DIRECTED 03/23/18 03/01/19 [Mycostatin Powder] INSULIN LISPRO (humaLOG) [humaLOG] 12 units SQ AC-TID 02/21/19 03/01/19 Insulin Glargine [Lantus] 10 unit SQ HS 02/21/19 03/01/19 Meclizine [Antivert] 25 mg PO TID 02/21/19 03/01/19 Methotrexate/Pf [Rasuvo 7.5 1 ml .ROUTE WEEKLY 02/21/19 03/01/19 mg/0.15 ml Autoinj] Omeprazole 40 mg PO DAILY 02/21/19 03/01/19 Ondansetron HCl [Zofran] 8 mg PO TID 02/21/19 03/01/19 Allergies Allergy/AdvReac Type Severity Reaction Status Date / Time atropine sulfate Allergy Severe Rash/Hives Verified 03/04/19 23:16 [From Lomotil] codeine Allergy Severe Nausea & Verified 03/04/19 23:16 Vomiting diphenoxylate HCl Allergy Severe Rash/Hives Verified 03/04/19 23:16 [From Lomotil] metformin Allergy Severe Dyspnea Verified 03/04/19 23:16 levofloxacin [From Levaquin] Allergy Intermediate Rash/Hives Verified 03/04/19 23:16 amoxicillin [Amoxicillin] Allergy Mild Rash/Hives Verified 03/04/19 23:16 cephalexin [Cephalexin] Allergy Mild Rash/Hives Verified 03/04/19 23:16 ciprofloxacin [From Cipro] Allergy Mild Rash/Hives Verified 03/04/19 23:16 ciprofloxacin HCl Allergy Mild Rash/Hives Verified 03/04/19 23:16 [From Cipro] doxycycline Allergy Mild Rash/Hives Verified 03/04/19 23:16 Influenza Virus Vaccines Allergy Nausea & Verified 03/04/19 23:16 Vomiting Iodinated Contrast Media Allergy Rash/Hives Verified 03/04/19 23:16 [Iodinated Contrast- Oral and IV Dye] metronidazole [From Flagyl] Allergy Rash/Hives Verified 03/04/19 23:16 Sulfa (Sulfonamide Allergy Rash/Hives Verified 03/04/19 23:16 Antibiotics) Review of Systems ROS Other: All systems not noted in ROS Statement are negative. <Jayce Barba - Last Filed: 03/05/19 02:05> ROS Other: All systems not noted in ROS Statement are negative. <Primitivo Garcia - Last Filed: 03/05/19 21:41> ROS Statement: Those systems with pertinent positive or pertinent negative responses have been documented in the HPI. Past Medical History Past Medical History: Asthma, Diabetes Mellitus, Eye Disorder, GERD/Reflux, Hearing Disorder / Deafness, Hyperlipidemia, Osteoarthritis (OA), Pneumonia, Renal Disease, Skin Disorder, Syncope Additional Past Medical History / Comment(s): Bilateral Glaucoma, Hard of Hearing. MENIERES DISEASE. Hx ULCERATIVE COLITIS yrs ago, now has Chron's Disease. Has a permanent ostomy on right side that has herniated and prolapsed, wears abd binder 30/11. "Abd wall is all mesh." "Has many unreapirable hernias in abd. Ulcerative cololistis 2000 & toxic megacolon J pouch tube till 2004. Faint heart murmur. Ezcema. States "was in ICU at [facility] with Stage 4 Kidney Failure May 2017, resolved now." Hx Pneumonia 5-6 months ago. History of Any Multi-Drug Resistant Organisms: None Reported Past Surgical History: Adenoidectomy, Bowel Resection, Hernia Repair, Tons illectomy Additional Past Surgical History / Comment(s): PICC LINE 07/12/14- SINCE REMOVED. BILATERAL TUBES IN EARS. RT MIDDLE FINGER REPAIR. SUBTOTAL COLECTOMY 1999, REMOVAL OF RECTUM 2000/CREATION OF J POUCH/REMOVAL OF OSTOMY/CREATION OF ILEOSTOMY 1999. LYSIS OFADHESIONS. Reversal 2004 - 2009 then replaced the ileostomy 2010. SINUS SX. J pouch removed, permanent ileosotmy. COLONOSCOPY/EGD. Past Anesthesia/Blood Transfusion Reactions: No Reported Reaction Past Psychological History: Anxiety Smoking Status: Never smoker Past Alcohol Use History: None Reported Past Drug Use History: None Reported - Past Family History Father Family Medical History: No Reported History Mother Family Medical History: Cancer, Coronary Artery Disease (CAD), Diabetes Mellitu s, Hypertension Additional Family Medical History / Comment(s): Mother of cancer related problem <Jayce Barba - Last Filed: 03/05/19 02:05> General Exam Limitations: no limitations <Jayce Barba - Last Filed: 03/05/19 02:05> - General Exam Comments Initial Comments: Constitutional: NAD, AOX3, Pt has pleasant affect. HEENT: NC/AT, trachea midline, neck supple, no lymphadenopathy. Posterior pharynx non erythematous, without exudates. External ears appear normal, without discharge. Mucous membranes moist. Eyes PERRLA, EOM intact. There is no scleral icterus. No pallor noted. Cardiopulmonary: RRR, no murmurs, rubs or gallops, no JVD noted. Lungs CTAB in anterior and posterior byrd. No peripheral edema. Abdominal exam: Abdomen soft and non-distended. Ileostomy noted, mild amount of erythema proximal to ileostomy site, mild amount of fluctuance. Possible findings of new fistula tract. Mild tenderness region, otherwise abdomen nontender. Bowel sounds active in LLQ. No hepatosplenomegaly. No ecchymosis Neuro: CN II-XII grossly intact. No nuchal rigidity. No raccon eyes, no cotton sign, no hemotympanum. No cervical spinal tenderness. MSK: No posterior calf tenderness bilaterally, homans sign negative bilaterally. Posterior tibialis and radial pulse +2 bilaterally. Sensation intact in upper and lower extremities. Full active ROM in upper and lower extremities, 5/5 stregnth. (Jayce Barba) Course Vital Signs 03/04/19 03/05/19 03/05/19 23:12 00:28 02:14 Temperature 100.5 F H 98.5 F Pulse Rate 129 H 104 H 92 Respiratory 18 18 18 Rate Blood Pressure 100/64 106/65 100/64 O2 Sat by Pulse 97 96 96 Oximetry Medical Decision Making - Lab Data Result diagrams: 03/05/19 00:00 03/05/19 00:00 <Jayce Barba - Last Filed: 03/05/19 02:05> - Lab Data Result diagrams: 03/05/19 00:00 03/05/19 00:00 <Primitivo Garcia - Last Filed: 03/05/19 21:41> - Medical Decision Making 38-year-old male patient with past history significant for Crohn's presents to ED for evaluation of abdomen. Patient does have a ileostomy and a known fistula. Patient presents to ED with chief complaint of redness, fluctuance around the ostomy site. Patient reports this is ongoing for approximately 5 days. Denies any other constitutional symptoms. Denies any other complaints. Patient vital signs displayed temperature 100.5F. Slight tachycardia. Physical exam displayed: Possible findings of new fistula tract. Mild tenderness region, otherwise abdomen nontender. Bowel sounds active in LLQ. No hepatosplenomegaly. No ecchymosis laboratory investigations revealed nonspecific CBC. CMP revealed mild hypokalemia, mild hyperglycemia. Lactic acidosis at 2.5. UA displayed post for glucose. Potassium supplemented. Patient initiated on Zosyn. Patient bolused 1 L. Vancomycin and additional fluid bolus ordered. Patient declined. Patient also declined CAT scan. Patient will be [facility] to [facility]. Recommended vancomycin, dosing, transfer by EMS. Patient declined. Risks discussed with patient, patient verbalized understanding. Patient will be transferred by private vehicle. Case was discussed with [facility] physician Dr. Vergara. Case discussed and patient seen by Dr. Robertson. (Jayce Barba) I saw this patient in conjunction with the physician assistant professor of religion. I performed independent history and physical exam. Agree with case management. (Primitivo Garcia) - Lab Data Lab Results 03/05/19 03/05/19 03/05/19 Range/Units 00:00 00:00 00:00 WBC 8.2 (3.8-10.6) k/uL RBC 4.05 L (4.30-5.90) m/uL Hgb 11.1 L (13.0-17.5) gm/dL Hct 34.7 L (39.0-53.0) % MCV 85.7 (80.0-100.0) fL MCH 27.4 (25.0-35.0) pg MCHC 32.0 (31.0-37.0) g/dL RDW 20.1 H (11.5-15.5) % Plt Count 417 (150-450) k/uL Neutrophils % (Manual) 72 % Band Neutrophils % 2 % Lymphocytes % (Manual) 13 % Monocytes % (Manual) 9 % Eosinophils % (Manual) 3 % Basophils % (Manual) 1 % Neutrophils # (Manual) 6.00 (1.3-7.7) k/uL Lymphocytes # (Manual) 1.07 (1.0-4.8) k/uL Monocytes # (Manual) 0.74 (0-1.0) k/uL Eosinophils # (Manual) 0.25 (0-0.7) k/uL Basophils # (Manual) 0.08 (0-0.2) k/uL Nucleated RBCs 0 (0-0) /100 WBC Manual Slide Review Performed Polychromasia Present Hypochromasia Moderate Poikilocytosis Slight Anisocytosis Moderate Sodium 135 L (137-145) mmol/L Potassium 3.2 L (3.5-5.1) mmol/L Chloride 95 L (98-107) mmol/L Carbon Dioxide 29 (22-30) mmol/L Anion Gap 11 mmol/L BUN 14 (9-20) mg/dL Creatinine 0.56 L (0.66-1.25) mg/dL Est GFR (CKD-EPI)AfAm >90 (>60 ml/min/1.73 sqM) Est GFR (CKD-EPI)NonAf >90 (>60 ml/min/1.73 sqM) Glucose 239 H (74-99) mg/dL POC Glucose (mg/dL) (75-99) mg/dL POC Glu Putty Mixer ID Lactic Ac Sepsis Rflx Plasma Lactic Acid Eb (0.7-2.0) mmol/L Calcium 9.4 (8.4-10.2) mg/dL Total Bilirubin 0.2 (0.2-1.3) mg/dL AST 30 (17-59) U/L ALT 31 (21-72) U/L Alkaline Phosphatase 81 (38-126) U/L Total Protein 6.1 L (6.3-8.2) g/dL Albumin 3.6 (3.5-5.0) g/dL Amylase 37 (30-110) U/L Lipase 82 (23-300) U/L Urine Color Yellow Urine Appearance Clear (Clear) Urine pH 7.0 (5.0-8.0) Ur Specific [place] 1.026 (1.001-1.035) Urine Protein Trace H (Negative) Urine Glucose (UA) 4+ H (Negative) Urine Ketones Negative (Negative) Urine Blood Negative (Negative) Urine Nitrite Negative (Negative) Urine Bilirubin Negative (Negative) Urine Urobilinogen 3.0 (<2.0) mg/dL Ur Leukocyte Esterase Negative (Negative) 03/05/19 03/05/19 03/05/19 Range/Units 00:00 01:05 01:50 WBC (3.8-10.6) k/uL RBC (4.30-5.90) m/uL Hgb (13.0-17.5) gm/dL Hct (39.0-53.0) % MCV (80.0-100.0) fL MCH (25.0-35.0) pg MCHC (31.0-37.0) g/dL RDW (11.5-15.5) % Plt Count (150-450) k/uL Neutrophils % (Manual) % Band Neutrophils % % Lymphocytes % (Manual) % Monocytes % (Manual) % Eosinophils % (Manual) % Basophils % (Manual) % Neutrophils # (Manual) (1.3-7.7) k/uL Lymphocytes # (Manual) (1.0-4.8) k/uL Monocytes # (Manual) (0-1.0) k/uL Eosinophils # (Manual) (0-0.7) k/uL Basophils # (Manual) (0-0.2) k/uL Nucleated RBCs (0-0) /100 WBC Manual Slide Review Polychromasia Hypochromasia Poikilocytosis Anisocytosis Sodium (137-145) mmol/L Potassium (3.5-5.1) mmol/L Chloride (98-107) mmol/L Carbon Dioxide (22-30) mmol/L Anion Gap mmol/L BUN (9-20) mg/dL Creatinine (0.66-1.25) mg/dL Est GFR (CKD-EPI)AfAm (>60 ml/min/1.73 sqM) Est GFR (CKD-EPI)NonAf (>60 ml/min/1.73 sqM) Glucose (74-99) mg/dL POC Glucose (mg/dL) 165 H (75-99) mg/dL POC Glu Putty Mixer ID Carina Torres Lactic Ac Sepsis Rflx Y Plasma Lactic Acid Eb 2.5 H* (0.7-2.0) mmol/L Calcium (8.4-10.2) mg/dL Total Bilirubin (0.2-1.3) mg/dL AST (17-59) U/L ALT (21-72) U/L Alkaline Phosphatase (38-126) U/L Total Protein (6.3-8.2) g/dL Albumin (3.5-5.0) g/dL Amylase (30-110) U/L Lipase (23-300) U/L Urine Color Urine Appearance (Clear) Urine pH (5.0-8.0) Ur Specific [place] (1.001-1.035) Urine Protein (Negative) Urine Glucose (UA) (Negative) Urine Ketones (Negative) Urine Blood (Negative) Urine Nitrite (Negative) Urine Bilirubin (Negative) Urine Urobilinogen (<2.0) mg/dL Ur Leukocyte Esterase (Negative) Disposition Is patient prescribed a controlled substance at d/c from ED?: No - Out of Hospital Transfer - Req. Specs Out of Hospital Transfer - Requested Specifics: Other Emergency Center ([facility]) <Jayce Barba - Last Filed: 03/05/19 02:05> <Primitivo Garcia - Last Filed: 03/05/19 21:41> Clinical Impression: Abdominal pain, Abscess Disposition: OTHER INSTITUTION NOT DEFINED Condition: Serious Instructions (If sedation given, give patient instructions): Abscess (ED) Referrals: Ricardo Caal DO [Primary Care Provider] - 1-2 days
[2019-03-05 02:16] VITALS: BP 100/64; PULSE 92; TEMP 98.5
== END 2019-03-05 02:45 | disposition other institution (70) ==
LOC: EC 23:08
DX: L02.211 Cutaneous abscess of abdominal wall (principal); K50.90 Crohn's disease, unspecified, without complications; K94.12 Enterostomy infection; R00.0 Tachycardia, unspecified; E87.6 Hypokalemia; E11.65 Type 2 diabetes mellitus with hyperglycemia; E11.22 Type 2 diabetes mellitus with diabetic chronic kidney disease; E87.2 Acidosis; F41.9 Anxiety disorder, unspecified; J45.909 Unspecified asthma, uncomplicated; K21.9 Gastro-esophageal reflux disease without esophagitis; E78.5 Hyperlipidemia, unspecified; M19.90 Unspecified osteoarthritis, unspecified site; H40.9 Unspecified glaucoma; N18.4 Chronic kidney disease, stage 4 (severe); Z79.51 Long term (current) use of inhaled steroids; Z79.4 Long term (current) use of insulin; Z79.899 Other long term (current) drug therapy; Z88.8 Allergy status to other drugs, medicaments and biological substances; Z88.1 Allergy status to other antibiotic agents; Z88.5 Allergy status to narcotic agent; Z88.7 Allergy status to serum and vaccine; Z91.041 Radiographic dye allergy status; Z88.2 Allergy status to sulfonamides
CPT/HCPCS: 36415; 80053; 82150; 83605; 83690; 85025; 81003; 87040; 99285; 96365; 96366; J2543

== ENCOUNTER → 2019-03-16 | Outpatient (CLI) | payer MEDICARE, OTHER ==
--- NOTE | 2019-03-17 04:48 | MR ---
EXAMINATION TYPE: MR kidney wo/w con DATE OF EXAM: 03/16/2019 COMPARISON: HISTORY: abnormal spot on kidney per patient CONTRAST: Standard multiplanar, multisequence MRI departmental protocol utilizing 7.5 mL intravenous Gadavist g adolinium contrast. FINDINGS: Kidneys have fairly normal size and contour. There is artifact arising from the region of t he thiago hepatis that obscures the detail to some extent. There is no hydronephrosis. There is 1.4 cm cortical cyst upper pole right kidney. This shows no enhancement. There is no perinephric fluid. I s ee no evidence of a solid renal mass. There is no adrenal mass. There is a large right-sided ventral hernia that contains apparently some incarcerated bowel. The visualized liver spleen and pancreas appear normal. Bile ducts are not dilated. The thiago hepatis is obscured by artifact. There is no ascites. There is no evidence of pleural effusion. IMPRESSION: The exam shows cortical cyst upper pole right kidney. Otherwise negative exam. I do not have a recent exam to compare.
== END | disposition home or self-care (01) ==
LOC: RADMRIMAIN 15:49
PROVIDERS: ATTEND Family Medicine
DX: N28.1 Cyst of kidney, acquired (principal)
CPT/HCPCS: 74183; A9585

== ENCOUNTER → 2019-04-05 | Outpatient (CLI) | payer MEDICARE, OTHER ==
[2019-04-06 01:19] LABS: African American GFR (CKD) 130.4 (60.0-200.0); Anion Gap 13.5 mmol/L (4.00-12.00); BUN/Creat Ratio 18.75 Ratio (12.00-20.00); C Reactive Protein 9.4 mg/dL (0.0-0.8); Calcium 9.6 mg/dL (8.7-10.3); Carbon Dioxide 29.5 mmol/L (21.6-31.8); Non-African American GFR(CKD) 112.5 (60.0-200.0); Potassium 2.9 mmol/L (3.5-5.5)
== END ==
LOC: LABWHC1 15:00
PROVIDERS: ATTEND Internal Medicine
DX: K50.913 Crohn's disease, unspecified, with fistula (principal); E87.5 Hyperkalemia; R79.82 Elevated C-reactive protein (CRP); Z79.899 Other long term (current) drug therapy
CPT/HCPCS: 36415; 80048; 86140

== ENCOUNTER → 2019-04-27 | Outpatient (CLI) | payer MEDICARE, OTHER ==
[2019-04-27 16:42] LABS: Anisocytosis Slight; Basophils # (A) 0.3 k/uL (0-0.2); Basophils % (A) 2 %; Eosinophils # (A) 0.2 k/uL (0-0.7); Eosinophils % (A) 1 %; HCT 35.1 % (39.0-53.0); HGB 10.9 gm/dL (13.0-17.5); Hypochromasia Moderate; Lymphocytes # (A) 1.4 k/uL (1.0-4.8); Lymphocytes % (A) 8 %; MCH 28.7 pg (25.0-35.0); MCHC 31.2 g/dL (31.0-37.0); Mean Platelet Volume 8.6; Monocytes # (A) 1.2 k/uL (0-1.0); Monocytes % (A) 7 %; Neutrophils # (A) 13.6 k/uL (1.3-7.7); Neutrophils % (A) 81 %; Platelet Count 342 k/uL (150-450); RBC 3.81 m/uL (4.30-5.90); RDW 18.9 % (11.5-15.5); WBC 16.9 k/uL (3.8-10.6)
[2019-04-27 23:12] LABS: African American GFR (CKD) 79.1 (60.0-200.0); Albumin 4.3 g/dL (3.80-4.90); Albumin/Globulin Ratio 2.39 (1.60-3.17); Anion Gap 12.8 mmol/L (4.00-12.00); BUN/Creat Ratio 20.77 Ratio (12.00-20.00); Calcium 9.1 mg/dL (8.7-10.3); Carbon Dioxide 25.2 mmol/L (21.6-31.8); Globulin 1.8 g/dL (1.6-3.3); Non-African American GFR(CKD) 68.3 (60.0-200.0); Potassium 3.7 mmol/L (3.5-5.5); Total Bilirubin 0.2 mg/dL (0.3-1.2); Total Protein 6.1 g/dL (6.2-8.2)
== END | disposition home or self-care (01) ==
LOC: LABWHC1 15:06
DX: J18.9 Pneumonia, unspecified organism (principal)
CPT/HCPCS: 36415; 80053; 85025

== ENCOUNTER → 2019-05-04 | Outpatient (CLI) | payer MEDICARE, OTHER ==
[2019-05-04 20:16] LABS: Anisocytosis Slight; Basophils # (A) 0.1 k/uL (0-0.2); Basophils % (A) 1 %; Eosinophils # (A) 0.4 k/uL (0-0.7); Eosinophils % (A) 3 %; HGB 11.6 gm/dL (13.0-17.5); Hypochromasia Slight; Lymphocytes # (A) 2.8 k/uL (1.0-4.8); Lymphocytes % (A) 24 %; MCH 29.1 pg (25.0-35.0); MCHC 32.2 g/dL (31.0-37.0); MCV 90.6 fL (80.0-100.0); Mean Platelet Volume 10.1; Monocytes # (A) 1.3 k/uL (0-1.0); Monocytes % (A) 11 %; Neutrophils # (A) 6.9 k/uL (1.3-7.7); Neutrophils % (A) 59 %; Platelet Count 254 k/uL (150-450); RBC 3.97 m/uL (4.30-5.90); RDW 18.7 % (11.5-15.5); WBC 11.6 k/uL (3.8-10.6)
[2019-05-04 23:24] LABS: African American GFR (CKD) 87.1 (60.0-200.0); Albumin 4.5 g/dL (3.80-4.90); Albumin/Globulin Ratio 2.5 (1.60-3.17); Anion Gap 13.1 mmol/L (4.00-12.00); BUN/Creat Ratio 15.83 Ratio (12.00-20.00); Calcium 9.4 mg/dL (8.7-10.3); Carbon Dioxide 25.9 mmol/L (21.6-31.8); Globulin 1.8 g/dL (1.6-3.3); Non-African American GFR(CKD) 75.2 (60.0-200.0); Potassium 3.6 mmol/L (3.5-5.5); Total Bilirubin 0.2 mg/dL (0.3-1.2); Total Protein 6.3 g/dL (6.2-8.2)
== END | disposition home or self-care (01) ==
LOC: LABWHC1 14:58
DX: B59 Pneumocystosis (principal)
CPT/HCPCS: 36415; 80053; 85025

== ENCOUNTER → 2019-05-11 | Outpatient (CLI) | payer MEDICARE, OTHER ==
[2019-05-11 17:32] LABS: Anisocytosis Slight; Basophils # (A) 0.1 k/uL (0-0.2); Basophils % (A) 1 %; Eosinophils # (A) 0.3 k/uL (0-0.7); Eosinophils % (A) 4 %; HCT 33.4 % (39.0-53.0); HGB 10.9 gm/dL (13.0-17.5); Lymphocytes # (A) 1.8 k/uL (1.0-4.8); Lymphocytes % (A) 24 %; MCH 29.8 pg (25.0-35.0); MCHC 32.7 g/dL (31.0-37.0); MCV 90.9 fL (80.0-100.0); Mean Platelet Volume 7.6; Monocytes # (A) 0.5 k/uL (0-1.0); Monocytes % (A) 7 %; Neutrophils # (A) 4.6 k/uL (1.3-7.7); Neutrophils % (A) 61 %; Platelet Count 206 k/uL (150-450); RBC 3.67 m/uL (4.30-5.90); RDW 19.4 % (11.5-15.5); WBC 7.5 k/uL (3.8-10.6)
[2019-05-11 23:56] LABS: African American GFR (CKD) 108.6 (60.0-200.0); Albumin 4.5 g/dL (3.80-4.90); Albumin/Globulin Ratio 2.81 (1.60-3.17); Anion Gap 12.9 mmol/L (4.00-12.00); Calcium 9.6 mg/dL (8.7-10.3); Carbon Dioxide 23.1 mmol/L (21.6-31.8); Globulin 1.6 g/dL (1.6-3.3); Non-African American GFR(CKD) 93.7 (60.0-200.0); Potassium 3.2 mmol/L (3.5-5.5); Total Bilirubin 0.1 mg/dL (0.2-1.2); Total Protein 6.1 g/dL (6.2-8.2)
== END | disposition home or self-care (01) ==
LOC: LABWHC1 16:51
PROVIDERS: ATTEND Internal Medicine
DX: K50.913 Crohn's disease, unspecified, with fistula (principal); Z51.81 Encounter for therapeutic drug level monitoring
CPT/HCPCS: 36415; 80053; 85025

== ENCOUNTER → 2019-05-18 | Outpatient (CLI) | payer MEDICARE, OTHER ==
[~2019-05-18] MED LIST changes: +ACETAMINOPHEN TAB 325 MG TAB PO STA; +LORATADINE 10 MG TAB PO STA
[2019-05-18 13:06] VITALS: TEMP 97.8
[2019-05-18 14:37] VITALS: BP 108/69; PULSE 123; RESP 16
== END | disposition home or self-care (01) ==
LOC: PROCWHC3 12:46
PROVIDERS: ATTEND Internal Medicine
DX: R79.82 Elevated C-reactive protein (CRP) (principal); E87.5 Hyperkalemia; K50.913 Crohn's disease, unspecified, with fistula; Z79.899 Other long term (current) drug therapy
CPT/HCPCS: 96413; 96415; Q5103

== ENCOUNTER → 2019-06-07 | Outpatient (CLI) | payer MEDICARE, OTHER ==
[2019-06-07 17:18] LABS: Anisocytosis Slight; Basophils # (A) 0.2 k/uL (0-0.2); Basophils % (A) 2 %; Eosinophils # (A) 0.1 k/uL (0-0.7); Eosinophils % (A) 1 %; HCT 33.4 % (39.0-53.0); HGB 10.2 gm/dL (13.0-17.5); Hypochromasia Moderate; Lymphocytes # (A) 1.8 k/uL (1.0-4.8); Lymphocytes % (A) 18 %; MCH 30.5 pg (25.0-35.0); MCHC 30.4 g/dL (31.0-37.0); MCV 100.2 fL (80.0-100.0); Macrocytosis Moderate; Mean Platelet Volume 8.2; Monocytes # (A) 0.6 k/uL (0-1.0); Monocytes % (A) 6 %; Neutrophils # (A) 7.2 k/uL (1.3-7.7); Neutrophils % (A) 71 %; Platelet Count 392 k/uL (150-450); RBC 3.34 m/uL (4.30-5.90); RDW 18.5 % (11.5-15.5); WBC 10.1 k/uL (3.8-10.6)
[2019-06-08 00:57] LABS: African American GFR (CKD) 129.5 (60.0-200.0); Albumin 4.4 g/dL (3.80-4.90); Albumin/Globulin Ratio 2.93 (1.60-3.17); Anion Gap 11.6 mmol/L (4.00-12.00); BUN/Creat Ratio 22.5 Ratio (12.00-20.00); Calcium 9.8 mg/dL (8.7-10.3); Carbon Dioxide 24.4 mmol/L (21.6-31.8); Globulin 1.5 g/dL (1.6-3.3); Potassium 3.6 mmol/L (3.5-5.5); Total Protein 5.9 g/dL (6.2-8.2)
[2019-06-08 01:35] LABS: Non-African American GFR(CKD) 111.7 (60.0-200.0)
== END | disposition home or self-care (01) ==
LOC: LABWHC1 16:00
PROVIDERS: ATTEND Internal Medicine
DX: K50.913 Crohn's disease, unspecified, with fistula (principal); Z51.81 Encounter for therapeutic drug level monitoring
CPT/HCPCS: 36415; 80053; 85025

== ENCOUNTER → 2019-06-16 | Outpatient (CLI) | payer MEDICARE, OTHER ==
[2019-06-16 18:34] LABS: Albumin 3.9 g/dL (3.80-4.90); Albumin/Globulin Ratio 2.6 (1.60-3.17); Bilirubin, Conjugated 1.8 mg/dL (0.20-0.40); Bilirubin,Unconjugated 0.3 mg/dL; Globulin 1.5 g/dL (1.6-3.3); Total Bilirubin 2.1 mg/dL (0.3-1.2); Total Protein 5.4 g/dL (6.2-8.2)
== END | disposition home or self-care (01) ==
LOC: LABWHC1 06-12 09:02
PROVIDERS: ATTEND Internal Medicine
DX: B39.2 Pulmonary histoplasmosis capsulati, unspecified (principal)
CPT/HCPCS: 36415; 80076

== ENCOUNTER → 2019-06-20 | Outpatient (CLI) | payer MEDICARE, OTHER ==
--- NOTE | 2019-06-20 17:26 | XR ---
EXAMINATION TYPE: XR chest 2V DATE OF EXAM: 06/20/2019 COMPARISON: 05/12/2018 HISTORY: Pneumonia TECHNIQUE: 2 views FINDINGS: Heart is normal. Lungs are clear of infiltrate. There is no pleural effusion. Bony thorax i s intact. IMPRESSION: No active cardiopulmonary disease. Normal heart. No change.
== END | disposition home or self-care (01) ==
LOC: RAD 16:36
PROVIDERS: ATTEND Nurse Practitioner Family
DX: R05 Cough (principal)
CPT/HCPCS: 71046

== ENCOUNTER → 2019-07-13 | Outpatient (CLI) | payer MEDICARE, OTHER ==
[~2019-07-13] MED LIST changes: +ACETAMINOPHEN TAB 325 MG TAB PO ONE; -ACETAMINOPHEN TAB 325 MG TAB PO STA; +HYDROCORTISONE SUCCINATE 100 MG/2 ML VIAL IV ONE; +INFLIXIMAB-DYYB 700 MG in SODIUM CHLORIDE 0.9% 180 ML IV NR; -INFLIXIMAB-DYYB 700 MG in SODIUM CHLORIDE 0.9% 250 ML IV NR; +LORATADINE 10 MG TAB PO ONE; -LORATADINE 10 MG TAB PO STA
[2019-07-13 11:13] VITALS: TEMP 98.1
[2019-07-13 13:18] VITALS: BP 126/79; PULSE 118; RESP 16
== END | disposition home or self-care (01) ==
LOC: PROCWHC3 10:50
PROVIDERS: ATTEND Internal Medicine
DX: K50.913 Crohn's disease, unspecified, with fistula (principal)
CPT/HCPCS: 96375; 96413; 96415; J1720; Q5103

== ENCOUNTER → 2019-08-04 | Outpatient (CLI) | payer MEDICARE, OTHER ==
[2019-08-04 13:05] LABS: Anisocytosis Moderate; HCT 31.6 % (39.0-53.0); HGB 9.9 gm/dL (13.0-17.5); Hypochromasia Moderate; MCH 27.3 pg (25.0-35.0); MCHC 31.3 g/dL (31.0-37.0); MCV 87.3 fL (80.0-100.0); Mean Platelet Volume 9.8; Platelet Count 443 k/uL (150-450); Poikilocytosis Slight; RBC 3.62 m/uL (4.30-5.90); RDW 20.1 % (11.5-15.5); WBC 10.6 k/uL (3.8-10.6)
[2019-08-04 13:24] LABS: Band Neutrophils % 2 %; Eosinophils # (M) 0.11 k/uL (0-0.7); Lymphocytes # (M) 1.91 k/uL (1.0-4.8); Metamyelocytes # (M) 0.21 k/uL (0); Metamyelocytes % 2 %; Monocytes # (M) 0.74 k/uL (0-1.0); Myelocytes # (M) 0.11 k/uL (0); Myelocytes % 1 %; Neutrophils % (M) 71 %; Nucleated Red Blood Cells 0 /100 WBC (0-0); Total Cells Counted 200
[2019-08-04 13:25] LABS: Polychromasia Present
[2019-08-04 13:26] LABS: Mixed Population RBC Present; Toxic Granulation Present
[2019-08-04 17:24] LABS: Ferritin 710.6 ng/mL (22.0-322.0)
[2019-08-04 17:25] LABS: % Iron Saturation 5.29 (15.00-50.00); African American GFR (CKD) 136.8 (60.0-200.0); Albumin 4.3 g/dL (3.80-4.90); Albumin/Globulin Ratio 2.53 (1.60-3.17); Anion Gap 12.4 mmol/L (4.00-12.00); BUN/Creat Ratio 21.43 Ratio (12.00-20.00); Calcium 9.7 mg/dL (8.7-10.3); Carbon Dioxide 25.6 mmol/L (21.6-31.8); Globulin 1.7 g/dL (1.6-3.3); Total Bilirubin 0.2 mg/dL (0.2-1.2)
== END | disposition home or self-care (01) ==
LOC: LABWHC1 11:10
PROVIDERS: ATTEND Internal Medicine
DX: K50.913 Crohn's disease, unspecified, with fistula (principal); D50.8 Other iron deficiency anemias; Z51.81 Encounter for therapeutic drug level monitoring
CPT/HCPCS: 36415; 80053; 82728; 83540; 83550; 85025

== ENCOUNTER → 2019-09-07 | Outpatient (CLI) | payer MEDICARE, OTHER ==
[~2019-09-07] MED LIST changes: +ACETAMINOPHEN TAB 325 MG TAB PO NR; -ACETAMINOPHEN TAB 325 MG TAB PO ONE; +HYDROCORTISONE SUCCINATE 100 MG/2 ML VIAL IV NR; -HYDROCORTISONE SUCCINATE 100 MG/2 ML VIAL IV ONE; -INFLIXIMAB-DYYB 700 MG in SODIUM CHLORIDE 0.9% 180 ML IV NR; +INFLIXIMAB-DYYB 700 MG in SODIUM CHLORIDE 0.9% 250 ML IV NR; +LORATADINE 10 MG TAB PO NR; -LORATADINE 10 MG TAB PO ONE
[2019-09-07 08:22] VITALS: RESP 16; TEMP 97.8
[2019-09-07 09:40] VITALS: BP 113/71; PULSE 99
== END | disposition home or self-care (01) ==
LOC: PROCWHC3 08:08
PROVIDERS: ATTEND Internal Medicine
DX: K50.913 Crohn's disease, unspecified, with fistula (principal)
CPT/HCPCS: 86140; 96375; 96413; 96415; 36415; J1720; Q5103

== ENCOUNTER → 2019-11-02 | Outpatient (CLI) | payer MEDICARE, OTHER ==
[~2019-11-02] MED LIST changes: -HYDROCORTISONE SUCCINATE 100 MG/2 ML VIAL IV NR
[2019-11-02 12:19] VITALS: RESP 16; TEMP 98.6
[2019-11-02 13:34] LABS: African American GFR (CKD) >90 (>60 ml/min/1.73 sqM); Anion Gap 10 mmol/L; Blood Urea Nitrogen 19 mg/dL (9-20); Carbon Dioxide 27 mmol/L (22-30); Chloride 96 mmol/L (98-107); Glucose 217 mg/dL (74-99); Non-African American GFR(CKD) >90 (>60 ml/min/1.73 sqM); Potassium 3.3 mmol/L (3.5-5.1); Sodium 133 mmol/L (137-145)
[2019-11-02 13:45] VITALS: BP 106/64; PULSE 106
== END | disposition home or self-care (01) ==
LOC: PROCWHC3 12:03
PROVIDERS: ATTEND Internal Medicine
DX: K50.913 Crohn's disease, unspecified, with fistula (principal)
CPT/HCPCS: 80048; 86140; 96413; 96415; 36415; Q5103; 80230

== ENCOUNTER → 2019-11-20 | Outpatient (CLI) | payer MEDICARE, OTHER ==
[2019-11-20 14:45] LABS: Anisocytosis Slight; HCT 33.3 % (39.0-53.0); HGB 10.4 gm/dL (13.0-17.5); Hypochromasia Marked; MCH 29.3 pg (25.0-35.0); MCHC 31.1 g/dL (31.0-37.0); MCV 94.2 fL (80.0-100.0); Macrocytosis Slight; Mean Platelet Volume 7.6; Platelet Count 531 k/uL (150-450); Poikilocytosis Slight; RBC 3.53 m/uL (4.30-5.90); RDW 18.7 % (11.5-15.5); WBC 11.7 k/uL (3.8-10.6)
[2019-11-20 19:51] LABS: INR <0.91 (0.90-1.11); Partial Thromboplastin Time 22.4 sec (24.7-29.9); Prothrombin Time <9.9 sec (9.9-11.9)
[2019-11-20 20:21] LABS: African American GFR (CKD) 123.4 (60.0-200.0); Albumin 4.4 g/dL (3.80-4.90); Albumin/Globulin Ratio 2.32 (1.60-3.17); Anion Gap 13.1 mmol/L (4.00-12.00); BUN/Creat Ratio 18.89 Ratio (12.00-20.00); Calcium 9.8 mg/dL (8.7-10.3); Carbon Dioxide 31.9 mmol/L (21.6-31.8); Globulin 1.9 g/dL (1.6-3.3); Non-African American GFR(CKD) 106.5 (60.0-200.0); Potassium 3.1 mmol/L (3.5-5.5); Total Bilirubin 0.2 mg/dL (0.3-1.2); Total Protein 6.3 g/dL (6.2-8.2)
[2019-11-20 22:33] LABS: Hemoglobin A1C 7.1 % (4.0-6.0)
== END | disposition home or self-care (01) ==
LOC: LABWHC1 13:09
PROVIDERS: ATTEND Surgery
DX: Z01.812 Encounter for preprocedural laboratory examination (principal); K63.2 Fistula of intestine
CPT/HCPCS: 80053; 85027; 85610; 85730; 86850; 83036; 36415; U0003; C9803

== ENCOUNTER → 2020-01-09 | Outpatient (CLI) | payer MEDICARE, OTHER ==
[2020-01-09 16:12] LABS: Anisocytosis Slight; Basophils # (A) 0.1 k/uL (0-0.2); Basophils % (A) 1 %; Eosinophils # (A) 0.3 k/uL (0-0.7); Eosinophils % (A) 1 %; HCT 34.3 % (39.0-53.0); HGB 10.7 gm/dL (13.0-17.5); Hypochromasia Marked; Lymphocytes # (A) 1.5 k/uL (1.0-4.8); Lymphocytes % (A) 7 %; MCH 26.6 pg (25.0-35.0); MCHC 31.1 g/dL (31.0-37.0); Mean Platelet Volume 8.1; Monocytes % (A) 5 %; Neutrophils # (A) 18.3 k/uL (1.3-7.7); Neutrophils % (A) 86 %; Platelet Count 563 k/uL (150-450); Poikilocytosis Slight; RBC 4.01 m/uL (4.30-5.90); RDW 18.5 % (11.5-15.5); WBC 21.3 k/uL (3.8-10.6)
[2020-01-09 16:15] LABS: MCV 85.5 fL (80.0-100.0)
[2020-01-09 17:27] LABS: Poikilocytosis (M) Present
[2020-01-10 01:12] LABS: Erythrocyte Sedimentation Rate 86 mm/Hr (0-15)
[2020-01-10 01:36] LABS: Ferritin 127.2 ng/mL (22.0-322.0)
[2020-01-10 02:00] LABS: % Iron Saturation 7.61 (15.00-50.00); African American GFR (CKD) 87.1 (60.0-200.0); Albumin 4.6 g/dL (3.80-4.90); Albumin/Globulin Ratio 2.09 (1.60-3.17); Anion Gap 17.1 mmol/L (4.00-12.00); BUN/Creat Ratio 15.83 Ratio (12.00-20.00); C Reactive Protein 0.4 mg/dL (0.0-0.8); Calcium 9.5 mg/dL (8.7-10.3); Carbon Dioxide 22.9 mmol/L (21.6-31.8); Globulin 2.2 g/dL (1.6-3.3); Non-African American GFR(CKD) 75.2 (60.0-200.0); Potassium 4.2 mmol/L (3.5-5.5); Total Bilirubin 0.1 mg/dL (0.3-1.2); Total Protein 6.8 g/dL (6.2-8.2)
== END | disposition home or self-care (01) ==
LOC: LABWHC1 15:04
PROVIDERS: ATTEND Physician Assistant
DX: K50.913 Crohn's disease, unspecified, with fistula (principal); Z88.1 Allergy status to other antibiotic agents; Z88.2 Allergy status to sulfonamides; Z88.5 Allergy status to narcotic agent; Z88.8 Allergy status to other drugs, medicaments and biological substances; Z91.041 Radiographic dye allergy status; Z88.7 Allergy status to serum and vaccine
CPT/HCPCS: 36415; 80053; 82607; 82728; 83540; 83550; 85025; 85652; 86140

== ENCOUNTER → 2020-02-26 | Outpatient (CLI) | payer MEDICARE, OTHER | END | disposition home or self-care (01) | LOC: LABWHC1 11:37 | PROVIDERS: ATTEND Internal Medicine | DX: R57.8 Other shock (principal) | CPT/HCPCS: U0003; C9803 ==

== ENCOUNTER → 2020-05-15 | Outpatient (CLI) | payer MEDICARE, OTHER ==
[~2020-05-15] MED LIST changes: +HYDROCORTISONE SUCCINATE 100 MG/2 ML VIAL IV NR
[2020-05-15 10:11] VITALS: RESP 18; TEMP 98.1
[2020-05-15 11:35] VITALS: BP 109/70; PULSE 80
== END | disposition home or self-care (01) ==
LOC: PROCWHC3 10:01
PROVIDERS: ATTEND Physician Assistant
DX: K50.113 Crohn's disease of large intestine with fistula (principal)
CPT/HCPCS: 86140; 80230; 96374; 96413; 96415; 36415; J1720; Q5103

== ENCOUNTER → 2020-05-23 | Outpatient (CLI) | payer MEDICARE, OTHER ==
[2020-05-24 03:38] LABS: African American GFR (CKD) 107.9 (60.0-200.0); Albumin 4.7 g/dL (3.80-4.90); Albumin/Globulin Ratio 1.96 (1.60-3.17); Calcium 8.8 mg/dL (8.7-10.3); Globulin 2.4 g/dL (1.6-3.3); Non-African American GFR(CKD) 93.1 (60.0-200.0); Total Bilirubin 0.4 mg/dL (0.3-1.2); Total Protein 7.1 g/dL (6.2-8.2)
== END | disposition home or self-care (01) ==
LOC: LABWHC1 14:35
PROVIDERS: ATTEND Physician Assistant
DX: K50.913 Crohn's disease, unspecified, with fistula (principal)
CPT/HCPCS: 36415; 80053

== ENCOUNTER → 2020-06-26 | Outpatient (CLI) | payer MEDICARE, OTHER ==
[2020-06-26 10:24] VITALS: TEMP 97.6
[2020-06-26 11:18] VITALS: RESP 18
[2020-06-26 11:47] VITALS: BP 113/68; PULSE 85
== END | disposition home or self-care (01) ==
LOC: PROCWHC3 09:51
PROVIDERS: ATTEND Physician Assistant
DX: K50.113 Crohn's disease of large intestine with fistula (principal)
CPT/HCPCS: 96375; 96413; 96415; J1720; Q5103

== ENCOUNTER → 2020-07-03 | Outpatient (CLI) | payer MEDICARE, OTHER ==
[2020-07-04 03:14] LABS: Gliadin AB IgA, Deaminated NEGATIVE (NEGATIVE); Gliadin AB IgA, Unit 1.1 U/mL; Gliadin AB IgG, Deaminated NEGATIVE (NEGATIVE)
[2020-07-04 03:45] LABS: Protein, Total 6.9 g/dL (6.2-8.2)
[2020-07-04 13:54] LABS: Albumin 3.39 g/dL (3.80-4.90); Gamma Globulin 1.16 g/dL (0.70-1.50)
[2020-07-05 11:37] LABS: Alpha 1 Anti-Trypsin 173 mg/dL (90 - 200)
== END | disposition home or self-care (01) ==
LOC: LABWHC1 14:57
PROVIDERS: ATTEND Physician Assistant
DX: D50.0 Iron deficiency anemia secondary to blood loss (chronic) (principal); R79.89 Other specified abnormal findings of blood chemistry
CPT/HCPCS: 36415; 82103; 82104; 83516; 84165; 86038

== ENCOUNTER → 2020-08-05 | Outpatient (CLI) | payer MEDICARE, OTHER ==
[2020-08-05 19:52] LABS: HCT 40.1 % (39.6-50.0); HGB 12.1 g/dL (13.0-17.0); MCH 26.4 pg (27.0-32.0); MCHC 30.2 g/dL (32.0-37.0); MCV 87.6 fL (80.0-97.0); Mean Platelet Volume 12.1 fL (9.5-12.2); Platelet Count 253 X 10*3/uL (140-440); RBC 4.58 X 10*6/uL (4.40-5.60); RDW 15.7 % (11.5-14.5); WBC 8.05 X 10*3/uL (4.50-10.00)
[2020-08-05 20:08] LABS: Ferritin 174.2 ng/mL (22.0-322.0)
[2020-08-05 20:14] LABS: % Iron Saturation 9.56 (15.00-50.00); African American GFR (CKD) 107.9 (60.0-200.0); Albumin 4.1 g/dL (3.80-4.90); Albumin/Globulin Ratio 1.41 (1.60-3.17); Anion Gap 7.1 mmol/L (4.00-12.00); Calcium 7.8 mg/dL (8.7-10.3); Carbon Dioxide 28.9 mmol/L (21.6-31.8); Globulin 2.9 g/dL (1.6-3.3); Non-African American GFR(CKD) 93.1 (60.0-200.0); Potassium 3.7 mmol/L (3.5-5.5); Total Bilirubin 0.3 mg/dL (0.3-1.2)
[2020-08-06 01:13] LABS: INR 1.15 (0.90-1.11); Partial Thromboplastin Time 28.6 sec (23.5-31.0); Prothrombin Time 12.4 sec (9.9-11.9)
== END | disposition home or self-care (01) ==
LOC: LABWHC1 12:53
PROVIDERS: ATTEND Physician Assistant
DX: D50.0 Iron deficiency anemia secondary to blood loss (chronic) (principal); R79.89 Other specified abnormal findings of blood chemistry
CPT/HCPCS: 36415; 80053; 82728; 82784; 83540; 83550; 84443; 85027; 85610; 85730

== ENCOUNTER → 2020-08-07 | Outpatient (CLI) | payer MEDICARE, OTHER ==
[~2020-08-07] MED LIST changes: +INFLIXIMAB-DYYB 700 MG in SODIUM CHLORIDE 0.9% 180 ML IV NR; -INFLIXIMAB-DYYB 700 MG in SODIUM CHLORIDE 0.9% 250 ML IV NR
[2020-08-07 10:19] VITALS: RESP 16; TEMP 98
[2020-08-07 11:49] VITALS: BP 116/70; PULSE 86
== END ==
LOC: PROCWHC3 09:58
PROVIDERS: ATTEND Physician Assistant
DX: K50.113 Crohn's disease of large intestine with fistula (principal)
CPT/HCPCS: 86140; 96365; 96366; 96375; 36415; J1720; Q5103

== ENCOUNTER → 2020-09-18 | Outpatient (CLI) | payer MEDICARE, OTHER ==
[2020-09-18 10:39] VITALS: RESP 16; TEMP 98.1
[2020-09-18 11:17] VITALS: BP 111/66; PULSE 79
== END ==
LOC: PROCWHC3 09:56
PROVIDERS: ATTEND Physician Assistant
DX: K50.113 Crohn's disease of large intestine with fistula (principal); Z88.2 Allergy status to sulfonamides; Z88.0 Allergy status to penicillin; Z88.1 Allergy status to other antibiotic agents; Z88.5 Allergy status to narcotic agent; Z88.8 Allergy status to other drugs, medicaments and biological substances
CPT/HCPCS: 86140; 96375; 96413; 96415; J1720; Q5103

== ENCOUNTER → 2020-09-25 | Outpatient (CLI) | payer MEDICARE, OTHER | END | disposition home or self-care (01) | LOC: LABWHC1 11:17 | PROVIDERS: ATTEND Physician Assistant | DX: Z53.9 Procedure and treatment not carried out, unspecified reason (principal) ==

== ENCOUNTER → 2020-11-04 | Outpatient (CLI) | payer MEDICARE, OTHER ==
[2020-11-04 10:44] VITALS: TEMP 97.8
[2020-11-04 11:12] VITALS: RESP 16
[2020-11-04 11:39] VITALS: BP 99/58; PULSE 74
== END ==
LOC: PROCWHC3 10:09
PROVIDERS: ATTEND Physician Assistant
DX: K50.113 Crohn's disease of large intestine with fistula (principal); R79.89 Other specified abnormal findings of blood chemistry; Z79.899 Other long term (current) drug therapy; Z88.5 Allergy status to narcotic agent; Z88.8 Allergy status to other drugs, medicaments and biological substances; Z91.041 Radiographic dye allergy status; Z88.2 Allergy status to sulfonamides; Z88.7 Allergy status to serum and vaccine; Z88.1 Allergy status to other antibiotic agents
CPT/HCPCS: 86140; 96375; 96413; 96415; 36415; J1720; Q5103

== ENCOUNTER → 2020-12-18 | Outpatient (CLI) | payer MEDICARE, OTHER ==
[2020-12-18 10:21] VITALS: TEMP 98
[2020-12-18 10:51] VITALS: BP 116/69; PULSE 80
[2020-12-18 11:23] VITALS: RESP 16
[2020-12-18 12:06] LABS: Basophils # (A) 0.2 k/uL (0-0.2); Basophils % (A) 2 %; Eosinophils # (A) 1.6 k/uL (0-0.7); Eosinophils % (A) 13 %; HCT 43.7 % (39.0-53.0); HGB 14.7 gm/dL (13.0-17.5); Lymphocytes # (A) 2.3 k/uL (1.0-4.8); Lymphocytes % (A) 20 %; MCHC 33.6 g/dL (31.0-37.0); MCV 92.3 fL (80.0-100.0); Mean Platelet Volume 10.1; Monocytes # (A) 0.9 k/uL (0-1.0); Monocytes % (A) 7 %; Neutrophils # (A) 6.4 k/uL (1.3-7.7); Neutrophils % (A) 54 %; Platelet Count 223 k/uL (150-450); RBC 4.73 m/uL (4.30-5.90); RDW 13.3 % (11.5-15.5); WBC 11.8 k/uL (3.8-10.6)
[2020-12-18 12:21] LABS: ALT 118 U/L (4-49); AST 116 U/L (17-59); African American GFR (CKD) >90 (>60 ml/min/1.73 sqM); Albumin 4.8 g/dL (3.5-5.0); Alkaline Phosphatase 96 U/L (38-126); Anion Gap 14 mmol/L; Blood Urea Nitrogen 23 mg/dL (9-20); Calcium 9.9 mg/dL (8.4-10.2); Carbon Dioxide 18 mmol/L (22-30); Chloride 100 mmol/L (98-107); Creatine Kinase 174 U/L (55-170); Glucose 365 mg/dL (74-99); Non-African American GFR(CKD) >90 (>60 ml/min/1.73 sqM); Potassium 4.9 mmol/L (3.5-5.1); Sodium 132 mmol/L (137-145); Total Bilirubin 0.7 mg/dL (0.2-1.3); Total Protein 8.4 g/dL (6.3-8.2)
== END ==
LOC: PROCWHC3 09:45
PROVIDERS: ATTEND Physician Assistant
DX: K50.113 Crohn's disease of large intestine with fistula (principal); Z88.5 Allergy status to narcotic agent; Z88.1 Allergy status to other antibiotic agents; Z88.2 Allergy status to sulfonamides; Z88.7 Allergy status to serum and vaccine; Z88.8 Allergy status to other drugs, medicaments and biological substances
CPT/HCPCS: 80053; 82085; 82550; 85025; 96375; 96413; 96415; J1720; Q5103

== ENCOUNTER → 2021-02-05 | Outpatient (CLI) | payer MEDICARE, OTHER ==
[~2021-02-05] MED LIST changes: -INFLIXIMAB-DYYB 700 MG in SODIUM CHLORIDE 0.9% 180 ML IV NR; +INFLIXIMAB-DYYB 700 MG in SODIUM CHLORIDE 0.9% 250 ML IV NR
[2021-02-05 11:49] VITALS: TEMP 98.2
[2021-02-05 12:21] LABS: Basophils # (A) 0.1 k/uL (0-0.2); Basophils % (A) 1 %; Eosinophils # (A) 1.7 k/uL (0-0.7); Eosinophils % (A) 17 %; HCT 40.5 % (39.0-53.0); HGB 13.8 gm/dL (13.0-17.5); Lymphocytes # (A) 1.9 k/uL (1.0-4.8); Lymphocytes % (A) 19 %; MCH 30.6 pg (25.0-35.0); MCV 89.8 fL (80.0-100.0); Mean Platelet Volume 8.9; Monocytes # (A) 0.7 k/uL (0-1.0); Monocytes % (A) 8 %; Neutrophils # (A) 5.2 k/uL (1.3-7.7); Neutrophils % (A) 52 %; Platelet Count 229 k/uL (150-450); RBC 4.51 m/uL (4.30-5.90); RDW 13.4 % (11.5-15.5)
[2021-02-05 12:34] VITALS: RESP 16
[2021-02-05 13:03] LABS: ALT 89 U/L (4-49); AST 104 U/L (17-59); African American GFR (CKD) >90 (>60 ml/min/1.73 sqM); Albumin 4.3 g/dL (3.5-5.0); Alkaline Phosphatase 79 U/L (38-126); Anion Gap 10 mmol/L; Blood Urea Nitrogen 12 mg/dL (9-20); Calcium 8.8 mg/dL (8.4-10.2); Carbon Dioxide 26 mmol/L (22-30); Chloride 101 mmol/L (98-107); Glucose 284 mg/dL (74-99); Non-African American GFR(CKD) >90 (>60 ml/min/1.73 sqM); Potassium 4.2 mmol/L (3.5-5.1); Sodium 137 mmol/L (137-145); Total Bilirubin 0.7 mg/dL (0.2-1.3); Total Protein 7.9 g/dL (6.3-8.2)
[2021-02-05 13:20] VITALS: BP 117/70; PULSE 80
== END ==
LOC: PROCWHC3 11:24
PROVIDERS: ATTEND Physician Assistant
DX: K50.113 Crohn's disease of large intestine with fistula (principal); Z79.899 Other long term (current) drug therapy; Z88.5 Allergy status to narcotic agent; Z88.8 Allergy status to other drugs, medicaments and biological substances; Z88.6 Allergy status to analgesic agent; Z88.1 Allergy status to other antibiotic agents; Z88.7 Allergy status to serum and vaccine; Z88.2 Allergy status to sulfonamides; Z91.041 Radiographic dye allergy status
CPT/HCPCS: 80053; 85025; 96375; 96413; 96415; 36415; J1720; Q5103

== ENCOUNTER → 2021-03-25 | Outpatient (CLI) | payer MEDICARE, OTHER ==
[2021-03-25 12:41] LABS: ALT 92 U/L (4-49); AST 114 U/L (17-59); African American GFR (CKD) >90 (>60 ml/min/1.73 sqM); Albumin 4.2 g/dL (3.5-5.0); Alkaline Phosphatase 85 U/L (38-126); Anion Gap 11 mmol/L; Blood Urea Nitrogen 15 mg/dL (9-20); Calcium 8.5 mg/dL (8.4-10.2); Carbon Dioxide 26 mmol/L (22-30); Chloride 101 mmol/L (98-107); Glucose 269 mg/dL (74-99); Non-African American GFR(CKD) >90 (>60 ml/min/1.73 sqM); Potassium 3.6 mmol/L (3.5-5.1); Sodium 138 mmol/L (137-145); Total Bilirubin 0.6 mg/dL (0.2-1.3); Total Protein 7.7 g/dL (6.3-8.2)
[2021-03-25 12:52] VITALS: RESP 16
[2021-03-25 12:55] LABS: HGB 13.9 gm/dL (13.0-17.5); MCH 31.3 pg (25.0-35.0); MCHC 33.8 g/dL (31.0-37.0); MCV 92.6 fL (80.0-100.0); Mean Platelet Volume 8.8; Platelet Count 207 k/uL (150-450); RBC 4.43 m/uL (4.30-5.90); RDW 12.8 % (11.5-15.5); WBC 9.2 k/uL (3.8-10.6)
[2021-03-25 13:00] LABS: Creatine Kinase 262 U/L (55-170)
[2021-03-25 13:48] VITALS: BP 108/67; PULSE 56
[2021-03-25 14:18] LABS: Basophils # (M) 0.18 k/uL (0-0.2); Eosinophils # (M) 1.47 k/uL (0-0.7); Lymphocytes # (M) 0.64 k/uL (1.0-4.8); Monocytes # (M) 0.64 k/uL (0-1.0); Neutrophils # (M) 6.26 k/uL (1.3-7.7); Neutrophils % (M) 68 %; Nucleated Red Blood Cells 0 /100 WBC (0-0); Total Cells Counted 100
== END ==
LOC: PROCWHC3 11:26
PROVIDERS: ATTEND Physician Assistant
DX: K50.113 Crohn's disease of large intestine with fistula (principal); Z88.8 Allergy status to other drugs, medicaments and biological substances; Z88.5 Allergy status to narcotic agent; Z91.041 Radiographic dye allergy status; Z88.2 Allergy status to sulfonamides; Z88.7 Allergy status to serum and vaccine
CPT/HCPCS: 80053; 82085; 82550; 85025; 96375; 96413; 96415; 36415; J1720; Q5103

== ENCOUNTER → 2021-05-07 | Outpatient (CLI) | payer MEDICARE, OTHER ==
[2021-05-07 11:45] VITALS: RESP 16; TEMP 98.1
[2021-05-07 13:11] LABS: Basophils # (A) 0.1 k/uL (0-0.2); Basophils % (A) 1 %; Eosinophils # (A) 0.7 k/uL (0-0.7); Eosinophils % (A) 10 %; HCT 45.8 % (39.0-53.0); HGB 14.7 gm/dL (13.0-17.5); Lymphocytes # (A) 1.4 k/uL (1.0-4.8); Lymphocytes % (A) 19 %; MCH 30.5 pg (25.0-35.0); MCHC 32.1 g/dL (31.0-37.0); MCV 94.9 fL (80.0-100.0); Mean Platelet Volume 8.7; Monocytes # (A) 0.4 k/uL (0-1.0); Monocytes % (A) 6 %; Neutrophils # (A) 4.3 k/uL (1.3-7.7); Neutrophils % (A) 62 %; Platelet Count 174 k/uL (150-450); RBC 4.83 m/uL (4.30-5.90); RDW 12.5 % (11.5-15.5)
[2021-05-07 13:22] LABS: ALT 134 U/L (4-49); AST 170 U/L (17-59); African American GFR (CKD) >90 (>60 ml/min/1.73 sqM); Albumin 4.3 g/dL (3.5-5.0); Alkaline Phosphatase 93 U/L (38-126); Anion Gap 13 mmol/L; Blood Urea Nitrogen 13 mg/dL (9-20); Calcium 9.1 mg/dL (8.4-10.2); Carbon Dioxide 26 mmol/L (22-30); Chloride 100 mmol/L (98-107); Creatine Kinase 254 U/L (55-170); Glucose 243 mg/dL (74-99); Non-African American GFR(CKD) >90 (>60 ml/min/1.73 sqM); Potassium 3.8 mmol/L (3.5-5.1); Sodium 139 mmol/L (137-145); Total Bilirubin 0.5 mg/dL (0.2-1.3); Total Protein 7.7 g/dL (6.3-8.2)
[2021-05-07 13:23] VITALS: BP 122/70; PULSE 75
== END ==
LOC: PROCWHC3 11:28
PROVIDERS: ATTEND Internal Medicine
DX: K50.113 Crohn's disease of large intestine with fistula (principal); Z79.899 Other long term (current) drug therapy; R79.89 Other specified abnormal findings of blood chemistry; Z88.5 Allergy status to narcotic agent; Z88.8 Allergy status to other drugs, medicaments and biological substances; Z88.1 Allergy status to other antibiotic agents; Z88.7 Allergy status to serum and vaccine; Z88.2 Allergy status to sulfonamides; Z91.041 Radiographic dye allergy status
CPT/HCPCS: 80053; 82085; 82550; 85025; 96375; 96413; 96415; 36415; J1720; Q5103; 80076

== ENCOUNTER → 2021-06-20 | Outpatient (CLI) | payer MEDICARE, OTHER ==
[~2021-06-20] MED LIST changes: +INFLIXIMAB-DYYB 700 MG in SODIUM CHLORIDE 0.9% 180 ML IV NR; -INFLIXIMAB-DYYB 700 MG in SODIUM CHLORIDE 0.9% 250 ML IV NR
[2021-06-20 10:44] VITALS: RESP 16; TEMP 98
[2021-06-20 11:19] LABS: Basophils # (A) 0.1 k/uL (0-0.2); Basophils % (A) 1 %; Eosinophils # (A) 0.8 k/uL (0-0.7); Eosinophils % (A) 10 %; HCT 41.9 % (39.0-53.0); HGB 14.2 gm/dL (13.0-17.5); Lymphocytes # (A) 1.8 k/uL (1.0-4.8); Lymphocytes % (A) 21 %; MCH 31.4 pg (25.0-35.0); MCHC 33.9 g/dL (31.0-37.0); MCV 92.8 fL (80.0-100.0); Mean Platelet Volume 8.7; Monocytes # (A) 0.7 k/uL (0-1.0); Monocytes % (A) 8 %; Neutrophils # (A) 4.6 k/uL (1.3-7.7); Neutrophils % (A) 55 %; Platelet Count 247 k/uL (150-450); RBC 4.52 m/uL (4.30-5.90); RDW 13.1 % (11.5-15.5); WBC 8.3 k/uL (3.8-10.6)
[2021-06-20 11:56] LABS: RBC Morphology Normal
[2021-06-20 12:07] VITALS: BP 123/76; PULSE 73
== END ==
LOC: PROCWHC3 10:28
PROVIDERS: ATTEND Internal Medicine
DX: K50.113 Crohn's disease of large intestine with fistula (principal); R79.89 Other specified abnormal findings of blood chemistry; Z88.5 Allergy status to narcotic agent; Z88.1 Allergy status to other antibiotic agents; Z88.7 Allergy status to serum and vaccine; Z91.041 Radiographic dye allergy status; Z88.8 Allergy status to other drugs, medicaments and biological substances; Z88.2 Allergy status to sulfonamides
CPT/HCPCS: 85025; 96375; 96413; 96415; 36415; J1720; Q5103

== ENCOUNTER 2021-07-21 10:18 | Day surgery (SDC) | payer MEDICARE, OTHER ==
[2021-07-17 16:48] VITALS: BMI 24.5
[~2021-07-21 10:18] MED LIST changes: -ACETAMINOPHEN TAB 325 MG TAB PO NR; -HYDROCORTISONE SUCCINATE 100 MG/2 ML VIAL IV NR; -INFLIXIMAB-DYYB 700 MG in SODIUM CHLORIDE 0.9% 180 ML IV NR; +LACTATED RINGERS 1,000 ML IV SCH; +LIDOCAINE 1% (10MG/ML) FOR IV START INTRADERMA PRN; -LORATADINE 10 MG TAB PO NR; +ONDANSETRON 4 MG/2 ML VIAL IVP ONE; +SCOPOLAMINE 1.5MG/72HR PATCH TRANSDERM ONE; -SODIUM CHLORIDE 0.9% 500 ML 500 ML in EMPTY BAG 1 BAG IV PRN; +fentaNYL (PF) 50 MCG/ML 2 ML AMP IV PRN
[2021-07-21 11:05] VITALS: TEMP 98
[2021-07-21 11:13] LABS: Glucose,Whole Blood 131 mg/dL (75-99)
[2021-07-21] MEDS ORDERED: PROPOFOL 10 MG/ML 20 ML VIAL IV ONE (11:48)
[2021-07-21] MEDS ORDERED: fentaNYL (PF) 50 MCG/ML 2 ML AMP ONE (11:48)
[2021-07-21] MEDS ORDERED: MIDAZOLAM 2 MG/2 ML VIAL ONE (11:48)
[2021-07-21] MEDS ORDERED: BUPIVACAINE (PF) 0.25% 30 ML VIAL SQ ONE (12:00)
[2021-07-21] MEDS ORDERED: LIDOCAINE 2%-EPI 1:100,000 20 ML VIAL SQ ONE (12:00)
[2021-07-21 12:33] LABS: Glucose,Whole Blood 119 mg/dL (75-99)
[2021-07-21 12:37] VITALS: RESP 16
--- NOTE | 2021-07-21 12:38 | P.OP ---
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 He has had a long-standing problem with a hook nail. He underwent an nail ablation in 2018 but is still having problems with painful nail remnants. A long discussion about his treatment options. On exam his DIP is fixed in 90 of flexion he has a very small piece of his distal phalanx remaining as well as a good FDS tendon to the finger. We discussed a repeat nail ablation versus a revision amputation elects for the revision amputation. Description of Procedure: Patient, operative extremity, and procedure were identified in the preoperative holding area. After informed consent was obtained he was brought back to the operating room where local block was performed with 2% lidocaine with e pinephrine and quarter percent Marcaine. The extremities then prepped and draped in normal sterile fashion. After formal timeout was performed, the finger of a a size 6-1/2 glove was used as a finger tourniquet. A fishmouth incision was utilized to excise the nail in its entirety. Dissection was carried through skin, the flexor tendon, and the joint capsule. The DIP joint was disarticulated and a rongeur was taken to the head of the middle phalanx. This was rounded down, narrowed, and slightly shortened. The digital nerves were also transected under tension. The finger tourniquet was then taken off. Hemostasis was achieved. The skin edges came together nice and was closed with 5-0 chromic sutures. Wound was dressed with Adaptic 1 inch Vicki, and Coban. Patient was aroused by the anesthesia team and brought back to PACU in stable condition.
[2021-07-21 12:39] VITALS: BP 118/69; PULSE 68
== END 2021-07-21 13:15 | disposition home or self-care (01) ==
LOC: OR 10:18
PROVIDERS: ATTEND Orthopaedic Surgery Hand Surgery
DX: L60.8 Other nail disorders (principal); H91.90 Unspecified hearing loss, unspecified ear; H40.9 Unspecified glaucoma; I12.9 Hypertensive chronic kidney disease with stage 1 through stage 4 chronic kidney disease, or unspecified chronic kidney disease; E11.22 Type 2 diabetes mellitus with diabetic chronic kidney disease; N18.9 Chronic kidney disease, unspecified; K31.89 Other diseases of stomach and duodenum; J98.4 Other disorders of lung; K50.90 Crohn's disease, unspecified, without complications; J45.909 Unspecified asthma, uncomplicated; E78.5 Hyperlipidemia, unspecified; Z98.890 Other specified postprocedural states; Z83.3 Family history of diabetes mellitus; Z82.49 Family history of ischemic heart disease and other diseases of the circulatory system; G47.33 Obstructive sleep apnea (adult) (pediatric); M19.90 Unspecified osteoarthritis, unspecified site; Z90.49 Acquired absence of other specified parts of digestive tract; Z93.3 Colostomy status; F41.9 Anxiety disorder, unspecified; Z79.899 Other long term (current) drug therapy; Z79.51 Long term (current) use of inhaled steroids; Z88.5 Allergy status to narcotic agent; Z88.0 Allergy status to penicillin; Z88.2 Allergy status to sulfonamides; Z88.8 Allergy status to other drugs, medicaments and biological substances; Z88.1 Allergy status to other antibiotic agents; Z91.041 Radiographic dye allergy status
CPT/HCPCS: 26236; J2250; J0690; J2405; J3010; J2704

== ENCOUNTER → 2021-08-06 | Outpatient (CLI) | payer MEDICARE, OTHER ==
[~2021-08-06] MED LIST changes: +ACETAMINOPHEN TAB 325 MG TAB PO NR; +HYDROCORTISONE SUCCINATE 100 MG/2 ML VIAL IV NR; +INFLIXIMAB-DYYB 700 MG in SODIUM CHLORIDE 0.9% 180 ML IV NR; -LACTATED RINGERS 1,000 ML IV SCH; -LIDOCAINE 1% (10MG/ML) FOR IV START INTRADERMA PRN; +LORATADINE 10 MG TAB PO NR; -ONDANSETRON 4 MG/2 ML VIAL IVP ONE; -SCOPOLAMINE 1.5MG/72HR PATCH TRANSDERM ONE; +SODIUM CHLORIDE 0.9% 500 ML 500 ML in EMPTY BAG 1 BAG IV PRN; -fentaNYL (PF) 50 MCG/ML 2 ML AMP IV PRN
[2021-08-06 12:15] VITALS: TEMP 97.9
[2021-08-06 12:51] VITALS: RESP 16
[2021-08-06 13:13] LABS: ALT 168 U/L (4-49); AST 176 U/L (17-59); African American GFR (CKD) >90 (>60 ml/min/1.73 sqM); Albumin 4.7 g/dL (3.5-5.0); Alkaline Phosphatase 105 U/L (38-126); Anion Gap 11 mmol/L; Blood Urea Nitrogen 12 mg/dL (9-20); Calcium 9.4 mg/dL (8.4-10.2); Carbon Dioxide 26 mmol/L (22-30); Chloride 100 mmol/L (98-107); Glucose 230 mg/dL (74-99); Non-African American GFR(CKD) >90 (>60 ml/min/1.73 sqM); Sodium 137 mmol/L (137-145); Total Bilirubin 0.8 mg/dL (0.2-1.3); Total Protein 8.4 g/dL (6.3-8.2)
[2021-08-06 13:34] VITALS: BP 121/79; PULSE 74
[2021-08-06 14:17] LABS: Basophils # (A) 0.1 k/uL (0-0.2); Basophils % (A) 1 %; Eosinophils # (A) 0.7 k/uL (0-0.7); Eosinophils % (A) 8 %; HCT 41.8 % (39.0-53.0); HGB 14.2 gm/dL (13.0-17.5); Lymphocytes # (A) 1.2 k/uL (1.0-4.8); Lymphocytes % (A) 14 %; MCH 31.4 pg (25.0-35.0); MCV 92.2 fL (80.0-100.0); Mean Platelet Volume 9.3; Monocytes # (A) 0.6 k/uL (0-1.0); Monocytes % (A) 7 %; Neutrophils # (A) 5.7 k/uL (1.3-7.7); Neutrophils % (A) 66 %; Platelet Count 218 k/uL (150-450); RBC 4.53 m/uL (4.30-5.90); RDW 13.4 % (11.5-15.5); WBC 8.6 k/uL (3.8-10.6)
== END ==
LOC: PROCWHC3 11:26
PROVIDERS: ATTEND Internal Medicine
DX: K50.113 Crohn's disease of large intestine with fistula (principal); K51.90 Ulcerative colitis, unspecified, without complications; M06.9 Rheumatoid arthritis, unspecified; M45.9 Ankylosing spondylitis of unspecified sites in spine; L40.50 Arthropathic psoriasis, unspecified; L40.0 Psoriasis vulgaris; Z88.5 Allergy status to narcotic agent; Z88.8 Allergy status to other drugs, medicaments and biological substances; Z88.1 Allergy status to other antibiotic agents; Z88.7 Allergy status to serum and vaccine; Z88.2 Allergy status to sulfonamides
CPT/HCPCS: 80053; 82085; 85025; 96413; 96415; 36415; J1720; Q5103; 96375

== ENCOUNTER → 2021-10-30 | Outpatient (CLI) | payer MEDICARE, OTHER ==
[2021-10-30 11:38] VITALS: TEMP 98.9
[2021-10-30 12:17] LABS: Basophils # (A) 0.1 k/uL (0-0.2); Basophils % (A) 1 %; Eosinophils # (A) 0.8 k/uL (0-0.7); Eosinophils % (A) 10 %; HCT 41.2 % (39.0-53.0); HGB 13.7 gm/dL (13.0-17.5); Lymphocytes # (A) 1.1 k/uL (1.0-4.8); Lymphocytes % (A) 13 %; MCH 31.2 pg (25.0-35.0); MCHC 33.3 g/dL (31.0-37.0); MCV 93.7 fL (80.0-100.0); Monocytes # (A) 0.5 k/uL (0-1.0); Monocytes % (A) 6 %; Neutrophils # (A) 5.4 k/uL (1.3-7.7); Neutrophils % (A) 67 %; Platelet Count 182 k/uL (150-450); RBC 4.39 m/uL (4.30-5.90); RDW 12.7 % (11.5-15.5); WBC 8.1 k/uL (3.8-10.6)
[2021-10-30 12:34] VITALS: RESP 16
[2021-10-30 13:05] VITALS: BP 113/71; PULSE 70
== END ==
LOC: PROCWHC3 11:23
PROVIDERS: ATTEND Internal Medicine
DX: K50.113 Crohn's disease of large intestine with fistula (principal); Z88.5 Allergy status to narcotic agent; Z88.8 Allergy status to other drugs, medicaments and biological substances; Z88.1 Allergy status to other antibiotic agents; Z88.7 Allergy status to serum and vaccine; Z88.2 Allergy status to sulfonamides
CPT/HCPCS: 85025; 96375; 96413; 96415; 36415; J1720; Q5103

== ENCOUNTER → 2021-12-11 | Outpatient (CLI) | payer MEDICARE, OTHER ==
[2021-12-11 12:06] VITALS: TEMP 97.9
[2021-12-11 12:32] VITALS: RESP 16
[2021-12-11 12:34] LABS: Basophils # (A) 0.1 k/uL (0-0.2); Basophils % (A) 1 %; Eosinophils # (A) 0.9 k/uL (0-0.7); Eosinophils % (A) 9 %; HCT 43.2 % (39.0-53.0); HGB 14.4 gm/dL (13.0-17.5); Lymphocytes # (A) 1.6 k/uL (1.0-4.8); Lymphocytes % (A) 16 %; MCH 29.9 pg (25.0-35.0); MCHC 33.2 g/dL (31.0-37.0); MCV 90.1 fL (80.0-100.0); Mean Platelet Volume 9.1; Monocytes # (A) 0.7 k/uL (0-1.0); Monocytes % (A) 7 %; Neutrophils # (A) 6.6 k/uL (1.3-7.7); Neutrophils % (A) 65 %; Platelet Count 220 k/uL (150-450); RDW 12.6 % (11.5-15.5)
[2021-12-11 12:54] VITALS: BP 117/74; PULSE 76
== END ==
LOC: PROCWHC3 11:23
PROVIDERS: ATTEND Internal Medicine
DX: K50.113 Crohn's disease of large intestine with fistula (principal); Z88.5 Allergy status to narcotic agent; Z88.1 Allergy status to other antibiotic agents; Z88.2 Allergy status to sulfonamides; Z91.041 Radiographic dye allergy status; Z88.7 Allergy status to serum and vaccine; Z88.8 Allergy status to other drugs, medicaments and biological substances
CPT/HCPCS: 85025; 96375; 96413; 96415; 36415; J1720; Q5103

== ENCOUNTER → 2022-01-22 | Outpatient (CLI) | payer MEDICARE, OTHER ==
[2022-01-22 12:12] LABS: Basophils # (A) 0.2 k/uL (0-0.2); Basophils % (A) 2 %; Eosinophils # (A) 1.1 k/uL (0-0.7); Eosinophils % (A) 10 %; HCT 43.6 % (39.0-53.0); Lymphocytes # (A) 1.7 k/uL (1.0-4.8); Lymphocytes % (A) 16 %; MCH 29.2 pg (25.0-35.0); MCHC 32.2 g/dL (31.0-37.0); MCV 90.7 fL (80.0-100.0); Mean Platelet Volume 8.5; Monocytes # (A) 0.7 k/uL (0-1.0); Monocytes % (A) 7 %; Neutrophils # (A) 6.4 k/uL (1.3-7.7); Neutrophils % (A) 62 %; Platelet Count 202 k/uL (150-450); RBC 4.81 m/uL (4.30-5.90); RDW 12.7 % (11.5-15.5); WBC 10.3 k/uL (3.8-10.6)
[2022-01-22 12:22] LABS: ALT 77 U/L (4-49); AST 106 U/L (17-59); African American GFR (CKD) >90 (>60 ml/min/1.73 sqM); Albumin 4.6 g/dL (3.5-5.0); Alkaline Phosphatase 103 U/L (38-126); Anion Gap 13 mmol/L; Blood Urea Nitrogen 14 mg/dL (9-20); Calcium 8.9 mg/dL (8.4-10.2); Carbon Dioxide 26 mmol/L (22-30); Chloride 99 mmol/L (98-107); Glucose 290 mg/dL (74-99); Non-African American GFR(CKD) >90 (>60 ml/min/1.73 sqM); Sodium 138 mmol/L (137-145); Total Bilirubin 0.6 mg/dL (0.2-1.3); Total Protein 7.7 g/dL (6.3-8.2)
[2022-01-22 13:13] VITALS: RESP 16
[2022-01-22 14:01] VITALS: BP 116/66; PULSE 74
== END | disposition home or self-care (01) ==
LOC: PROCWHC3 11:37
PROVIDERS: ATTEND Internal Medicine
DX: K50.113 Crohn's disease of large intestine with fistula (principal)
CPT/HCPCS: 80053; 85025; 96365; 96366; 96375; 36415; J1720; Q5103

== ENCOUNTER → 2022-03-05 | Outpatient (CLI) | payer MEDICARE, OTHER ==
[2022-03-05 12:06] VITALS: TEMP 98.1
[2022-03-05 12:36] VITALS: RESP 16
[2022-03-05 13:09] VITALS: BP 116/63; PULSE 76
== END | disposition home or self-care (01) ==
LOC: PROCWHC3 11:37
PROVIDERS: ATTEND Internal Medicine
DX: K50.113 Crohn's disease of large intestine with fistula (principal)
CPT/HCPCS: 96375; 96413; 96415; J1720; Q5103

== ENCOUNTER → 2022-04-16 | Outpatient (CLI) | payer MEDICARE, OTHER ==
[2022-04-16 11:46] VITALS: RESP 16; TEMP 97.7
[2022-04-16 13:17] VITALS: BP 148/73; PULSE 92
== END ==
LOC: PROCWHC3 11:31
PROVIDERS: ATTEND Internal Medicine
DX: K50.113 Crohn's disease of large intestine with fistula (principal); Z88.5 Allergy status to narcotic agent; Z88.1 Allergy status to other antibiotic agents; Z88.7 Allergy status to serum and vaccine; Z91.041 Radiographic dye allergy status; Z88.2 Allergy status to sulfonamides; Z88.8 Allergy status to other drugs, medicaments and biological substances
CPT/HCPCS: 96413; 96415; J1720; Q5103; 96375

== ENCOUNTER → 2022-05-28 | Outpatient (CLI) | payer MEDICARE, OTHER ==
[2022-05-28 12:10] VITALS: TEMP 98.1
[2022-05-28 12:21] LABS: Basophils # (A) 0.1 k/uL (0-0.2); Basophils % (A) 1 %; Eosinophils # (A) 0.3 k/uL (0-0.7); Eosinophils % (A) 3 %; HCT 39.5 % (39.0-53.0); HGB 13.2 gm/dL (13.0-17.5); Lymphocytes # (A) 1.4 k/uL (1.0-4.8); Lymphocytes % (A) 15 %; MCH 29.1 pg (25.0-35.0); MCHC 33.4 g/dL (31.0-37.0); MCV 87.2 fL (80.0-100.0); Mean Platelet Volume 8.6; Monocytes # (A) 0.5 k/uL (0-1.0); Monocytes % (A) 5 %; Neutrophils % (A) 74 %; Platelet Count 221 k/uL (150-450); RBC 4.53 m/uL (4.30-5.90); RDW 12.9 % (11.5-15.5); WBC 9.4 k/uL (3.8-10.6)
[2022-05-28 12:34] LABS: ALT 48 U/L (4-49); AST 48 U/L (17-59); African American GFR (CKD) >90 (>60 ml/min/1.73 sqM); Albumin 4.2 g/dL (3.5-5.0); Alkaline Phosphatase 91 U/L (38-126); Anion Gap 9 mmol/L; Blood Urea Nitrogen 14 mg/dL (9-20); C Reactive Protein <0.5 mg/dL (<1.0); Calcium 8.7 mg/dL (8.4-10.2); Carbon Dioxide 27 mmol/L (22-30); Chloride 102 mmol/L (98-107); Glucose 225 mg/dL (74-99); Non-African American GFR(CKD) 86 (>60 ml/min/1.73 sqM); Potassium 3.6 mmol/L (3.5-5.1); Sodium 138 mmol/L (137-145); Total Bilirubin 0.5 mg/dL (0.2-1.3)
[2022-05-28 12:52] VITALS: RESP 16
[2022-05-28 13:16] VITALS: BP 104/65; PULSE 68
== END ==
LOC: PROCWHC3 11:37
PROVIDERS: ATTEND Internal Medicine
DX: K50.113 Crohn's disease of large intestine with fistula (principal); Z88.5 Allergy status to narcotic agent; Z88.1 Allergy status to other antibiotic agents; Z88.7 Allergy status to serum and vaccine; Z88.2 Allergy status to sulfonamides; Z91.041 Radiographic dye allergy status
CPT/HCPCS: 80053; 85025; 86140; 96375; 96413; 96415

== ENCOUNTER → 2022-08-20 | Outpatient (CLI) | payer MEDICARE, OTHER ==
[2022-08-20 12:33] VITALS: RESP 16; TEMP 98.2
[2022-08-20 12:46] LABS: Basophils # (A) 0.1 k/uL (0-0.2); Basophils % (A) 1 %; Eosinophils # (A) 0.6 k/uL (0-0.7); Eosinophils % (A) 6 %; HCT 40.5 % (39.0-53.0); HGB 14.3 gm/dL (13.0-17.5); Lymphocytes # (A) 2.2 k/uL (1.0-4.8); Lymphocytes % (A) 19 %; MCH 29.3 pg (25.0-35.0); MCHC 35.4 g/dL (31.0-37.0); MCV 82.7 fL (80.0-100.0); Mean Platelet Volume 9.3; Monocytes # (A) 0.6 k/uL (0-1.0); Monocytes % (A) 6 %; Neutrophils # (A) 7.5 k/uL (1.3-7.7); Neutrophils % (A) 66 %; Platelet Count 188 k/uL (150-450); RBC 4.89 m/uL (4.30-5.90); RDW 13.6 % (11.5-15.5); WBC 11.5 k/uL (3.8-10.6)
[2022-08-20 14:00] VITALS: BP 110/69; PULSE 103
== END ==
LOC: PROCWHC3 11:44
PROVIDERS: ATTEND Internal Medicine
DX: K50.113 Crohn's disease of large intestine with fistula (principal); Z88.5 Allergy status to narcotic agent; Z88.1 Allergy status to other antibiotic agents; Z88.6 Allergy status to analgesic agent; Z88.7 Allergy status to serum and vaccine; Z91.041 Radiographic dye allergy status; Z88.2 Allergy status to sulfonamides
CPT/HCPCS: 85025; 86140; J1720; Q5103; 36415; 96375; 96413; 96415

== ENCOUNTER → 2022-10-01 | Outpatient (CLI) | payer MEDICARE, OTHER ==
[~2022-10-01] MED LIST changes: -HYDROCORTISONE SUCCINATE 100 MG/2 ML VIAL IV NR; +HYDROCORTISONE SUCCINATE 100 MG/2 ML VIAL IVP NR; -INFLIXIMAB-DYYB 700 MG in SODIUM CHLORIDE 0.9% 180 ML IV NR; +INFLIXIMAB-DYYB 700 MG in SODIUM CHLORIDE 0.9% 250 ML IV NR
[2022-10-01 12:12] VITALS: RESP 16; TEMP 98.1
[2022-10-01 12:25] LABS: Basophils # (A) 0.1 k/uL (0-0.2); Basophils % (A) 1 %; Eosinophils # (A) 0.9 k/uL (0-0.7); Eosinophils % (A) 7 %; HCT 43.7 % (39.0-53.0); Lymphocytes % (A) 15 %; MCH 29.4 pg (25.0-35.0); MCHC 34.4 g/dL (31.0-37.0); MCV 85.5 fL (80.0-100.0); Mean Platelet Volume 8.8; Monocytes # (A) 0.8 k/uL (0-1.0); Monocytes % (A) 6 %; Neutrophils # (A) 9.3 k/uL (1.3-7.7); Neutrophils % (A) 70 %; Platelet Count 264 k/uL (150-450); RBC 5.11 m/uL (4.30-5.90); RDW 13.1 % (11.5-15.5); WBC 13.3 k/uL (3.8-10.6)
[2022-10-01 12:39] LABS: Albumin 5.1 g/dL (3.5-5.0); C Reactive Protein 0.9 mg/dL (<1.0); Potassium 4.3 mmol/L (3.5-5.1); Total Bilirubin 0.8 mg/dL (0.2-1.3); Total Protein 8.8 g/dL (6.3-8.2)
[2022-10-01 13:17] VITALS: BP 105/69; PULSE 80
== END ==
LOC: PROCWHC3 11:36
PROVIDERS: ATTEND Internal Medicine
DX: K50.113 Crohn's disease of large intestine with fistula (principal)
CPT/HCPCS: 80053; 85025; 86140; 96375; 96413; 96415; 36415; J1720; Q5103

== ENCOUNTER → 2022-11-12 | Outpatient (CLI) | payer MEDICARE, OTHER ==
[2022-11-12 11:15] VITALS: TEMP 97.8
[2022-11-12 11:28] LABS: Basophils # (A) 0.1 k/uL (0-0.2); Basophils % (A) 1 %; Eosinophils # (A) 1.1 k/uL (0-0.7); Eosinophils % (A) 8 %; HGB 13.8 gm/dL (13.0-17.5); Lymphocytes # (A) 2.1 k/uL (1.0-4.8); Lymphocytes % (A) 17 %; MCH 29.6 pg (25.0-35.0); MCHC 33.7 g/dL (31.0-37.0); Mean Platelet Volume 8.8; Monocytes # (A) 0.6 k/uL (0-1.0); Monocytes % (A) 5 %; Neutrophils # (A) 8.2 k/uL (1.3-7.7); Neutrophils % (A) 66 %; Platelet Count 205 k/uL (150-450); RBC 4.67 m/uL (4.30-5.90); RDW 13.5 % (11.5-15.5); WBC 12.4 k/uL (3.8-10.6)
[2022-11-12 11:51] LABS: ALT 25 U/L (4-49); AST 34 U/L (17-59); African American GFR (CKD) >90 (>60 ml/min/1.73 sqM); Albumin 4.4 g/dL (3.5-5.0); Alkaline Phosphatase 64 U/L (38-126); Anion Gap 13 mmol/L; Blood Urea Nitrogen 18 mg/dL (9-20); C Reactive Protein <0.5 mg/dL (<1.0); Calcium 7.7 mg/dL (8.4-10.2); Carbon Dioxide 25 mmol/L (22-30); Chloride 100 mmol/L (98-107); Glucose 208 mg/dL (74-99); Non-African American GFR(CKD) 82 (>60 ml/min/1.73 sqM); Sodium 138 mmol/L (137-145); Total Bilirubin 0.8 mg/dL (0.2-1.3); Total Protein 7.6 g/dL (6.3-8.2)
[2022-11-12 11:59] LABS: Potassium 3.8 mmol/L (3.5-5.1)
[2022-11-12 12:41] VITALS: BP 98/55; PULSE 76; RESP 15
== END ==
LOC: PROCWHC3 10:56
PROVIDERS: ATTEND Internal Medicine
DX: K50.90 Crohn's disease, unspecified, without complications (principal)
CPT/HCPCS: 80053; 85025; 86140; 96375; 96413; 96415; 36415; J1720; Q5103

== ENCOUNTER → 2022-12-24 | Outpatient (CLI) | payer MEDICARE, OTHER ==
[2022-12-24 11:50] VITALS: TEMP 98
[2022-12-24 12:16] LABS: Basophils # (A) 0.1 k/uL (0-0.2); Basophils % (A) 1 %; Eosinophils # (A) 0.8 k/uL (0-0.7); Eosinophils % (A) 7 %; HCT 39.9 % (39.0-53.0); HGB 13.7 gm/dL (13.0-17.5); Lymphocytes # (A) 2.4 k/uL (1.0-4.8); Lymphocytes % (A) 21 %; MCH 29.5 pg (25.0-35.0); MCHC 34.2 g/dL (31.0-37.0); MCV 86.3 fL (80.0-100.0); Mean Platelet Volume 8.8; Monocytes # (A) 0.8 k/uL (0-1.0); Monocytes % (A) 7 %; Neutrophils # (A) 7.2 k/uL (1.3-7.7); Neutrophils % (A) 63 %; Platelet Count 194 k/uL (150-450); RBC 4.62 m/uL (4.30-5.90); WBC 11.5 k/uL (3.8-10.6)
[2022-12-24 12:52] VITALS: RESP 16
[2022-12-24 13:23] VITALS: BP 95/59; PULSE 89
== END ==
LOC: PROCWHC3 11:15
PROVIDERS: ATTEND Internal Medicine
DX: K50.113 Crohn's disease of large intestine with fistula (principal); Z88.1 Allergy status to other antibiotic agents; Z88.2 Allergy status to sulfonamides; Z88.5 Allergy status to narcotic agent; Z88.6 Allergy status to analgesic agent; Z88.7 Allergy status to serum and vaccine; Z88.8 Allergy status to other drugs, medicaments and biological substances; Z91.041 Radiographic dye allergy status
CPT/HCPCS: 85025; 86140; 96375; 96413; 96415; 36415; J1720; Q5103

== ENCOUNTER → 2023-03-03 | Outpatient (CLI) | payer MEDICARE, OTHER | END | disposition home or self-care (01) | LOC: LABWHC1 15:50 | PROVIDERS: ATTEND Internal Medicine | DX: K50.113 Crohn's disease of large intestine with fistula (principal) | CPT/HCPCS: 36415; 86140 ==

== ENCOUNTER → 2023-03-18 | Outpatient (CLI) | payer MEDICARE, OTHER ==
[~2023-03-18] MED LIST changes: +HYDROCORTISONE SUCCINATE 100 MG/2 ML VIAL IV NR; -HYDROCORTISONE SUCCINATE 100 MG/2 ML VIAL IVP NR
[2023-03-18 11:59] VITALS: TEMP 97.7
[2023-03-18 12:05] LABS: Basophils # (A) 0.1 k/uL (0-0.2); Basophils % (A) 1 %; Eosinophils # (A) 0.7 k/uL (0-0.7); Eosinophils % (A) 5 %; HCT 42.5 % (39.0-53.0); HGB 14.2 gm/dL (13.0-17.5); Lymphocytes % (A) 15 %; MCH 28.7 pg (25.0-35.0); MCHC 33.4 g/dL (31.0-37.0); MCV 86.2 fL (80.0-100.0); Mean Platelet Volume 8.7; Monocytes # (A) 0.7 k/uL (0-1.0); Monocytes % (A) 5 %; Neutrophils # (A) 9.6 k/uL (1.3-7.7); Neutrophils % (A) 72 %; RBC 4.94 m/uL (4.30-5.90); RDW 13.7 % (11.5-15.5); WBC 13.3 k/uL (3.8-10.6)
[2023-03-18 12:07] LABS: Platelet Count 239 k/uL (150-450)
[2023-03-18 12:16] LABS: ALT 38 U/L (4-49); AST 48 U/L (17-59); African American GFR (CKD) >90 (>60 ml/min/1.73 sqM); Albumin 4.9 g/dL (3.5-5.0); Alkaline Phosphatase 76 U/L (38-126); Anion Gap 15 mmol/L; Blood Urea Nitrogen 16 mg/dL (9-20); C Reactive Protein 0.6 mg/dL (<1.0); Calcium 8.4 mg/dL (8.4-10.2); Carbon Dioxide 28 mmol/L (22-30); Chloride 97 mmol/L (98-107); Glucose 250 mg/dL (74-99); Non-African American GFR(CKD) 89 (>60 ml/min/1.73 sqM); Potassium 3.7 mmol/L (3.5-5.1); Sodium 140 mmol/L (137-145); Total Bilirubin 0.8 mg/dL (0.2-1.3); Total Protein 8.4 g/dL (6.3-8.2)
[2023-03-18 13:12] VITALS: BP 110/68; PULSE 78; RESP 16
== END ==
LOC: PROCWHC3 11:28
PROVIDERS: ATTEND Internal Medicine
DX: K50.113 Crohn's disease of large intestine with fistula (principal); Z88.1 Allergy status to other antibiotic agents; Z88.2 Allergy status to sulfonamides; Z88.5 Allergy status to narcotic agent; Z88.6 Allergy status to analgesic agent; Z88.7 Allergy status to serum and vaccine; Z88.8 Allergy status to other drugs, medicaments and biological substances; Z91.041 Radiographic dye allergy status
CPT/HCPCS: 80053; 85025; 86140; 96375; 96413; 96415; J1720; Q5103

== ENCOUNTER → 2023-04-29 | Outpatient (CLI) | payer MEDICARE, OTHER ==
[2023-04-29 11:47] VITALS: TEMP 98.2
[2023-04-29 12:10] LABS: Basophils # (A) 0.1 k/uL (0-0.2); Basophils % (A) 1 %; Eosinophils # (A) 0.7 k/uL (0-0.7); Eosinophils % (A) 6 %; HCT 41.8 % (39.0-53.0); HGB 14.3 gm/dL (13.0-17.5); Lymphocytes # (A) 2.5 k/uL (1.0-4.8); Lymphocytes % (A) 22 %; MCH 29.5 pg (25.0-35.0); MCHC 34.3 g/dL (31.0-37.0); Mean Platelet Volume 8.6; Monocytes # (A) 0.5 k/uL (0-1.0); Monocytes % (A) 4 %; Neutrophils # (A) 7.3 k/uL (1.3-7.7); Neutrophils % (A) 65 %; Platelet Count 210 k/uL (150-450); RBC 4.86 m/uL (4.30-5.90); RDW 13.5 % (11.5-15.5); WBC 11.2 k/uL (3.8-10.6)
[2023-04-29 12:38] VITALS: RESP 16
[2023-04-29 13:02] VITALS: PULSE 76
[2023-04-29 13:27] VITALS: BP 107/64
== END ==
LOC: PROCWHC3 11:19
PROVIDERS: ATTEND Internal Medicine
DX: K50.113 Crohn's disease of large intestine with fistula (principal); Z88.1 Allergy status to other antibiotic agents; Z88.2 Allergy status to sulfonamides; Z88.5 Allergy status to narcotic agent; Z88.6 Allergy status to analgesic agent; Z88.7 Allergy status to serum and vaccine; Z88.8 Allergy status to other drugs, medicaments and biological substances; Z91.041 Radiographic dye allergy status
CPT/HCPCS: 85025; 86140; 96375; 96413; 96415; 36415; J1720; Q5103

== ENCOUNTER → 2023-06-17 | Outpatient (CLI) | payer MEDICARE, OTHER ==
[2023-06-17] MEDS: ACETAMINOPHEN TAB 325 MG TAB PO NR (12:14)
[2023-06-17] MEDS: LORATADINE 10 MG TAB PO NR (12:14)
[2023-06-17] MEDS: SODIUM CHLORIDE 0.9% 500 ML 500 ML in EMPTY BAG 1 BAG IV PRN (12:15)
[2023-06-17] MEDS: HYDROCORTISONE SUCCINATE 100 MG/2 ML VIAL IV NR (12:24)
[2023-06-17 12:31] LABS: Basophils # (A) 0.1 k/uL (0-0.2); Basophils % (A) 1 %; Eosinophils # (A) 0.7 k/uL (0-0.7); Eosinophils % (A) 6 %; HCT 40.1 % (39.0-53.0); HGB 13.9 gm/dL (13.0-17.5); Lymphocytes # (A) 2.4 k/uL (1.0-4.8); Lymphocytes % (A) 18 %; MCH 29.4 pg (25.0-35.0); MCHC 34.6 g/dL (31.0-37.0); Mean Platelet Volume 9.7; Monocytes # (A) 0.9 k/uL (0-1.0); Monocytes % (A) 7 %; Neutrophils # (A) 8.5 k/uL (1.3-7.7); Neutrophils % (A) 66 %; Platelet Count 240 k/uL (150-450); RBC 4.72 m/uL (4.30-5.90); RDW 13.4 % (11.5-15.5); WBC 12.9 k/uL (3.8-10.6)
[2023-06-17 12:32] VITALS: RESP 16; TEMP 97.6
[2023-06-17] MEDS: INFLIXIMAB-DYYB 700 MG in SODIUM CHLORIDE 0.9% 250 ML IV NR (12:32)
[2023-06-17 13:35] VITALS: BP 111/70; PULSE 78
== END ==
LOC: PROCWHC3 11:41
PROVIDERS: ATTEND Internal Medicine
DX: K50.113 Crohn's disease of large intestine with fistula (principal); Z88.8 Allergy status to other drugs, medicaments and biological substances; Z88.1 Allergy status to other antibiotic agents; Z88.5 Allergy status to narcotic agent; Z88.7 Allergy status to serum and vaccine; Z91.041 Radiographic dye allergy status; Z88.2 Allergy status to sulfonamides
CPT/HCPCS: 85025; 86140; 96375; 96413; 96415; J1720; Q5103

== ENCOUNTER → 2023-07-27 | Outpatient (CLI) | payer MEDICARE ==
--- NOTE | 2023-07-27 17:18 | XR ---
EXAMINATION TYPE: XR lumbar spine 2 or 3V DATE OF EXAM: 07/27/2023 3:36 PM CLINICAL INDICATION:Male, 43 years old with history of M54.50 LOW BACK PAIN, UNSPECIFIED; [facility] COMPARISON: None TECHNIQUE: XR lumbar spine 2 or 3V - Frontal, lateral and coned in L5-S1 lateral views of the spine. FINDINGS: No evidence of any acute osseous pathology. No evidence of loss of vertebral body height i s seen. There is normal alignment of the lumbar vertebral bodies. Mild scattered disc space narrowing . Multilevel marginal osteophyte formation throughout the visualized spine. There is facet joint arth ropathy throughout the spine. Scattered at least mild neural foraminal stenosis. Multiple surgical cl ips throughout the abdomen. Right upper quadrant gallstones suspected. IMPRESSION: 1. No acute fracture. 2. Mild multilevel disc degeneration.
== END | disposition home or self-care (01) ==
LOC: RADXRMAIN 15:11
PROVIDERS: ATTEND Family Medicine
DX: M51.37 Other intervertebral disc degeneration, lumbosacral region (principal)
CPT/HCPCS: 72100

== ENCOUNTER → 2023-07-29 | Outpatient (CLI) | payer MEDICARE, OTHER ==
[2023-07-29] MEDS: HYDROCORTISONE SUCCINATE 100 MG/2 ML VIAL IV NR (11:49)
[2023-07-29] MEDS: LORATADINE 10 MG TAB PO NR (11:49)
[2023-07-29] MEDS: INFLIXIMAB-DYYB 700 MG in SODIUM CHLORIDE 0.9% 250 ML IV NR (11:50)
[2023-07-29] MEDS: SODIUM CHLORIDE 0.9% 500 ML 500 ML in EMPTY BAG 1 BAG IV PRN (11:50)
[2023-07-29 11:55] LABS: Basophils # (A) 0.1 k/uL (0-0.2); Basophils % (A) 1 %; Eosinophils # (A) 0.5 k/uL (0-0.7); Eosinophils % (A) 5 %; HGB 12.7 gm/dL (13.0-17.5); Lymphocytes # (A) 2.2 k/uL (1.0-4.8); Lymphocytes % (A) 21 %; MCH 28.3 pg (25.0-35.0); MCHC 32.5 g/dL (31.0-37.0); MCV 87.1 fL (80.0-100.0); Monocytes # (A) 0.6 k/uL (0-1.0); Monocytes % (A) 6 %; Neutrophils # (A) 6.9 k/uL (1.3-7.7); Neutrophils % (A) 66 %; Platelet Count 227 k/uL (150-450); RBC 4.48 m/uL (4.30-5.90); RDW 14.1 % (11.5-15.5); WBC 10.4 k/uL (3.8-10.6)
[2023-07-29 12:07] LABS: ALT 28 U/L (4-49); AST 38 U/L (17-59); African American GFR (CKD) >90 (>60 ml/min/1.73 sqM); Albumin 4.5 g/dL (3.5-5.0); Alkaline Phosphatase 70 U/L (38-126); Anion Gap 13 mmol/L; Blood Urea Nitrogen 15 mg/dL (9-20); Calcium 7.8 mg/dL (8.4-10.2); Carbon Dioxide 23 mmol/L (22-30); Chloride 104 mmol/L (98-107); Glucose 152 mg/dL (74-99); Non-African American GFR(CKD) >90 (>60 ml/min/1.73 sqM); Potassium 3.9 mmol/L (3.5-5.1); Sodium 140 mmol/L (137-145); Total Bilirubin 0.6 mg/dL (0.2-1.3); Total Protein 7.8 g/dL (6.3-8.2)
[2023-07-29] MEDS: ACETAMINOPHEN TAB 325 MG TAB PO NR (12:16)
[2023-07-29 12:23] LABS: C Reactive Protein 0.8 mg/dL (<1.0)
[2023-07-29 12:42] VITALS: BP 124/75; PULSE 82; RESP 16; TEMP 98.2
== END ==
LOC: PROCWHC3 11:26
PROVIDERS: ATTEND Internal Medicine
DX: K50.813 Crohn's disease of both small and large intestine with fistula (principal); Z88.1 Allergy status to other antibiotic agents; Z88.2 Allergy status to sulfonamides; Z88.5 Allergy status to narcotic agent; Z88.7 Allergy status to serum and vaccine; Z88.8 Allergy status to other drugs, medicaments and biological substances; Z91.041 Radiographic dye allergy status
CPT/HCPCS: 80053; 85025; 86140; 96375; 96413; 96415; J1720; Q5103

== ENCOUNTER → 2023-09-09 | Outpatient (CLI) | payer MEDICARE ==
[2023-09-09] MEDS: ACETAMINOPHEN TAB 325 MG TAB PO NR (12:00)
[2023-09-09] MEDS: HYDROCORTISONE SUCCINATE 100 MG/2 ML VIAL IV NR (12:01)
[2023-09-09] MEDS: LORATADINE 10 MG TAB PO NR (12:01)
[2023-09-09] MEDS: SODIUM CHLORIDE 0.9% 500 ML 500 ML in EMPTY BAG 1 BAG IV PRN (12:08)
[2023-09-09 12:24] LABS: Basophils # (A) 0.1 k/uL (0-0.2); Basophils % (A) 1 %; Eosinophils # (A) 0.8 k/uL (0-0.7); Eosinophils % (A) 6 %; HCT 38.7 % (39.0-53.0); HGB 13.2 gm/dL (13.0-17.5); Lymphocytes # (A) 2.1 k/uL (1.0-4.8); Lymphocytes % (A) 16 %; MCH 28.8 pg (25.0-35.0); MCHC 34.3 g/dL (31.0-37.0); MCV 84.2 fL (80.0-100.0); Mean Platelet Volume 9.6; Monocytes # (A) 0.9 k/uL (0-1.0); Monocytes % (A) 7 %; Neutrophils % (A) 68 %; Platelet Count 223 k/uL (150-450); RBC 4.59 m/uL (4.30-5.90); RDW 13.7 % (11.5-15.5); WBC 13.3 k/uL (3.8-10.6)
[2023-09-09 12:25] VITALS: TEMP 97.7
[2023-09-09] MEDS: INFLIXIMAB-DYYB 700 MG in SODIUM CHLORIDE 0.9% 250 ML IV NR (12:27)
[2023-09-09 12:32] LABS: ALT 26 U/L (4-49); AST 40 U/L (17-59); African American GFR (CKD) 83 (>60 ml/min/1.73 sqM); Albumin 4.4 g/dL (3.5-5.0); Alkaline Phosphatase 71 U/L (38-126); Anion Gap 12 mmol/L; Blood Urea Nitrogen 18 mg/dL (9-20); Carbon Dioxide 23 mmol/L (22-30); Chloride 100 mmol/L (98-107); Glucose 211 mg/dL (74-99); Non-African American GFR(CKD) 72 (>60 ml/min/1.73 sqM); Potassium 4.3 mmol/L (3.5-5.1); Sodium 135 mmol/L (137-145); Total Bilirubin 0.6 mg/dL (0.2-1.3); Total Protein 7.5 g/dL (6.3-8.2)
[2023-09-09 13:07] VITALS: PULSE 74
[2023-09-09 13:51] VITALS: BP 99/66; RESP 14
== END ==
LOC: PROCWHC3 11:32
PROVIDERS: ATTEND Internal Medicine
DX: K50.813 Crohn's disease of both small and large intestine with fistula (principal); Z88.1 Allergy status to other antibiotic agents; Z88.2 Allergy status to sulfonamides; Z88.5 Allergy status to narcotic agent; Z88.7 Allergy status to serum and vaccine; Z88.8 Allergy status to other drugs, medicaments and biological substances; Z91.041 Radiographic dye allergy status
CPT/HCPCS: 80053; 85025; 86140; 96375; 96413; 96415; J1720; Q5103

== ENCOUNTER → 2023-09-27 | Outpatient (CLI) | payer MEDICARE ==
--- NOTE | 2023-09-28 07:28 | US ---
EXAMINATION TYPE: US portal vein DATE OF EXAM: 09/27/2023 COMPARISON: NONE CLINICAL INDICATION: Male, 43 years old with history of K75.81 NONALCOHOLIC STEATOHEPATITIS; not symp tomatic, known GB stones, colostomy bag, cirrhosis EXAM MEASUREMENTS: Liver Length: 20.5 Gallbladder Wall: 0.2 CBD: 0.5 Right Kidney: 10.0 x 4.3 x 3.8 ANATOMY: Pancreas: wnl Liver: difficult to penetrate, enlarged, unable to visualize left lobe due to bowel gas Color flow patency within the portal vein: Portal Vein Flow: Hepatopetal Gallbladder: multiple stones Evidence for sonographic Chávez's sign: no CBD: wnl Right Kidney: wnl Ascites noted? no IMPRESSION: 1. Hepatomegaly with mild fatty infiltration. 2. Cholelithiasis.
== END | disposition home or self-care (01) ==
LOC: RADUSWWP 09:00
PROVIDERS: ATTEND Internal Medicine Gastroenterology
DX: K80.20 Calculus of gallbladder without cholecystitis without obstruction (principal); K75.81 Nonalcoholic steatohepatitis (NASH); R16.0 Hepatomegaly, not elsewhere classified
CPT/HCPCS: 93976

== ENCOUNTER → 2023-10-21 | Outpatient (CLI) | payer MEDICARE ==
[2023-10-21 11:47] VITALS: RESP 16; TEMP 98
[2023-10-21] MEDS: SODIUM CHLORIDE 0.9% 500 ML 500 ML in EMPTY BAG 1 BAG IV PRN (11:51)
[2023-10-21] MEDS: LORATADINE 10 MG TAB PO NR (11:51)
[2023-10-21] MEDS: HYDROCORTISONE SUCCINATE 100 MG/2 ML VIAL IV NR (11:52)
[2023-10-21] MEDS: ACETAMINOPHEN TAB 325 MG TAB PO NR (11:53)
[2023-10-21] MEDS: INFLIXIMAB-DYYB 700 MG in SODIUM CHLORIDE 0.9% 250 ML IV NR (12:01)
[2023-10-21 12:19] LABS: ALT 23 U/L (4-49); AST 35 U/L (17-59); African American GFR (CKD) >90 (>60 ml/min/1.73 sqM); Alkaline Phosphatase 50 U/L (38-126); Anion Gap 9 mmol/L; Blood Urea Nitrogen 17 mg/dL (9-20); C Reactive Protein 0.5 mg/dL (<1.0); Calcium 7.4 mg/dL (8.4-10.2); Carbon Dioxide 25 mmol/L (22-30); Chloride 106 mmol/L (98-107); Glucose 135 mg/dL (74-99); Non-African American GFR(CKD) >90 (>60 ml/min/1.73 sqM); Potassium 3.3 mmol/L (3.5-5.1); Sodium 140 mmol/L (137-145); Total Bilirubin 0.6 mg/dL (0.2-1.3); Total Protein 6.9 g/dL (6.3-8.2)
[2023-10-21 13:03] VITALS: BP 93/57; PULSE 73
== END ==
LOC: PROCWHC3 11:28
PROVIDERS: ATTEND Internal Medicine
DX: K50.813 Crohn's disease of both small and large intestine with fistula (principal); Z88.1 Allergy status to other antibiotic agents; Z88.2 Allergy status to sulfonamides; Z88.5 Allergy status to narcotic agent; Z88.6 Allergy status to analgesic agent; Z88.7 Allergy status to serum and vaccine; Z88.8 Allergy status to other drugs, medicaments and biological substances; Z91.041 Radiographic dye allergy status
CPT/HCPCS: 80053; 86140; 96375; 96413; 96415; J1720; Q5103

== ENCOUNTER → 2023-12-02 | Outpatient (CLI) | payer MEDICARE ==
[2023-12-02 11:19] VITALS: TEMP 97.8
[2023-12-02] MEDS: LORATADINE 10 MG TAB PO NR (11:21)
[2023-12-02] MEDS: ACETAMINOPHEN TAB 325 MG TAB PO NR (11:21)
[2023-12-02] MEDS: HYDROCORTISONE SUCCINATE 100 MG/2 ML VIAL IV NR (11:33)
[2023-12-02] MEDS: SODIUM CHLORIDE 0.9% 500 ML 500 ML in EMPTY BAG 1 BAG IV PRN (11:34)
[2023-12-02] MEDS: INFLIXIMAB-DYYB 700 MG in SODIUM CHLORIDE 0.9% 250 ML IV NR (12:05)
[2023-12-02 12:26] VITALS: RESP 16
[2023-12-02 13:14] VITALS: BP 99/63; PULSE 76
== END ==
LOC: PROCWHC3 10:59
PROVIDERS: ATTEND Internal Medicine
DX: K50.813 Crohn's disease of both small and large intestine with fistula (principal); Z88.1 Allergy status to other antibiotic agents; Z88.2 Allergy status to sulfonamides; Z88.5 Allergy status to narcotic agent; Z88.7 Allergy status to serum and vaccine; Z88.8 Allergy status to other drugs, medicaments and biological substances; Z91.041 Radiographic dye allergy status
CPT/HCPCS: 86140; 96375; 96413; 96415; J1720; Q5103

== ENCOUNTER → 2024-01-13 | Outpatient (CLI) | payer MEDICARE ==
[2024-01-13 11:02] VITALS: RESP 18; TEMP 98.2
[2024-01-13] MEDS: SODIUM CHLORIDE 0.9% 500 ML 500 ML in EMPTY BAG 1 BAG IV PRN (11:08)
[2024-01-13] MEDS: ACETAMINOPHEN TAB 325 MG TAB PO NR (11:09)
[2024-01-13] MEDS: HYDROCORTISONE SUCCINATE 100 MG/2 ML VIAL IV NR (11:09)
[2024-01-13] MEDS: LORATADINE 10 MG TAB PO NR (11:10)
[2024-01-13] MEDS: INFLIXIMAB-DYYB 700 MG in SODIUM CHLORIDE 0.9% 250 ML IV NR (11:28)
[2024-01-13 12:16] VITALS: BP 106/68; PULSE 88
== END ==
LOC: PROCWHC3 10:51
PROVIDERS: ATTEND Internal Medicine
DX: K50.813 Crohn's disease of both small and large intestine with fistula (principal); Z88.1 Allergy status to other antibiotic agents; Z88.2 Allergy status to sulfonamides; Z88.5 Allergy status to narcotic agent; Z88.7 Allergy status to serum and vaccine; Z88.8 Allergy status to other drugs, medicaments and biological substances; Z91.041 Radiographic dye allergy status
CPT/HCPCS: 96375; 96413; 96415; J1720; Q5103

== ENCOUNTER → 2024-02-24 | Outpatient (CLI) | payer MEDICARE, SELFPAY ==
[2024-02-24] MEDS: ACETAMINOPHEN TAB 325 MG TAB PO NR (11:21)
[2024-02-24] MEDS: HYDROCORTISONE SUCCINATE 100 MG/2 ML VIAL IV NR (11:21)
[2024-02-24] MEDS: LORATADINE 10 MG TAB PO NR (11:23)
[2024-02-24 11:25] VITALS: RESP 16; TEMP 97.8
[2024-02-24] MEDS: SODIUM CHLORIDE 0.9% 500 ML 500 ML in EMPTY BAG 1 BAG IV PRN (11:26)
[2024-02-24] MEDS: INFLIXIMAB-DYYB 700 MG in SODIUM CHLORIDE 0.9% 180 ML IV NR (12:01)
[2024-02-24 13:09] VITALS: BP 94/56; PULSE 82
== END ==
LOC: PROCWHC3 11:09
PROVIDERS: ATTEND Internal Medicine
DX: K50.813 Crohn's disease of both small and large intestine with fistula (principal); Z88.1 Allergy status to other antibiotic agents; Z88.2 Allergy status to sulfonamides; Z88.5 Allergy status to narcotic agent; Z88.7 Allergy status to serum and vaccine; Z88.8 Allergy status to other drugs, medicaments and biological substances; Z91.041 Radiographic dye allergy status
CPT/HCPCS: 96375; 96413; 96415; J1720; Q5103; 96365; 96366

== ENCOUNTER → 2024-03-28 | Outpatient (CLI) | payer MEDICARE, SELFPAY ==
--- NOTE | 2024-03-28 11:00 | US ---
EXAMINATION TYPE: US liver DATE OF EXAM: 03/28/2024 COMPARISON: US, MRI 03/16/2019. CLINICAL INDICATION: Male, 43 years old with history of K76.0 FATTY (CHANGE OF) LIVER, NOT ELSEWHERE CLASS; Known fatty liver and gallstones, order states HCC screening TECHNIQUE: Grayscale and color Doppler imaging of the right upper quadrant was performed. FINDINGS: EXAM MEASUREMENTS: Liver Length: 21.4 cm Gallbladder Wall: 0.2 cm CBD: 0.6 cm Right Kidney: 11.3 x 3.8 x 5.0 cm TECHNICAL AGRONOMIST NOTES: Difficult to scan midline ABD due to overlying bowel gas and extensive scaring f rom previous bowel surgeries Pancreas: Obscured by bowel gas Liver: Left lobe gassed out, right lobe limited views show heterogeneous parenchyma and enlarged jane er/ No evidence of mass at this time Gallbladder: Multiple gallstones filling lumen Evidence for sonographic Chávez's sign: No CBD: wnl Right Kidney: No evidence of hydro IMPRESSION: 1. No evidence for acute process. 2. Cholelithiasis. 3. Limited evaluation of the left hepatic lobe. [facility], , 03/28/2024 10:58 AM
== END | disposition home or self-care (01) ==
LOC: RADUSWWP 08:58
PROVIDERS: ATTEND Internal Medicine Gastroenterology
DX: K76.0 Fatty (change of) liver, not elsewhere classified (principal); K74.00 Hepatic fibrosis, unspecified; K80.20 Calculus of gallbladder without cholecystitis without obstruction
CPT/HCPCS: 76705

== ENCOUNTER → 2024-04-04 | Outpatient (CLI) | payer MEDICARE ==
[~2024-04-04] MED LIST changes: -ACETAMINOPHEN TAB 325 MG TAB PO NR; -HYDROCORTISONE SUCCINATE 100 MG/2 ML VIAL IV NR; -INFLIXIMAB-DYYB 700 MG in SODIUM CHLORIDE 0.9% 250 ML IV NR; -LORATADINE 10 MG TAB PO NR; +SODIUM CHLORIDE 0.9% 250 ML in EMPTY BAG 1 BAG IV PRN; -SODIUM CHLORIDE 0.9% 500 ML 500 ML in EMPTY BAG 1 BAG IV PRN
[2024-04-04 11:32] VITALS: RESP 16; TEMP 97.9
[2024-04-04] MEDS: LORATADINE 10 MG TAB PO NR (11:33)
[2024-04-04] MEDS: ACETAMINOPHEN TAB 325 MG TAB PO NR (11:33)
[2024-04-04] MEDS: HYDROCORTISONE SUCCINATE 100 MG/2 ML VIAL IV NR (11:38)
[2024-04-04] MEDS: SODIUM CHLORIDE 0.9% 500 ML 500 ML in EMPTY BAG 1 BAG IV PRN (11:38)
[2024-04-04] MEDS: INFLIXIMAB-DYYB 700 MG in SODIUM CHLORIDE 0.9% 180 ML IV NR (11:56)
[2024-04-04 12:59] VITALS: BP 109/71; PULSE 83
== END ==
LOC: PROCWHC3 11:14
PROVIDERS: ATTEND Internal Medicine
DX: K50.813 Crohn's disease of both small and large intestine with fistula (principal); Z88.1 Allergy status to other antibiotic agents; Z88.2 Allergy status to sulfonamides; Z88.5 Allergy status to narcotic agent; Z88.7 Allergy status to serum and vaccine; Z88.8 Allergy status to other drugs, medicaments and biological substances; Z91.041 Radiographic dye allergy status
CPT/HCPCS: 86140; 96375; 96413; 96415; J1720; Q5103

== ENCOUNTER → 2024-05-16 | Outpatient (CLI) | payer MEDICARE, SELFPAY ==
[2024-05-16 11:36] VITALS: RESP 16; TEMP 98.1
[2024-05-16] MEDS: ACETAMINOPHEN TAB 325 MG TAB PO NR (11:37)
[2024-05-16] MEDS: SODIUM CHLORIDE 0.9% 500 ML 500 ML in EMPTY BAG 1 BAG IV PRN (11:38)
[2024-05-16] MEDS: LORATADINE 10 MG TAB PO NR (11:38)
[2024-05-16] MEDS: HYDROCORTISONE SUCCINATE 100 MG/2 ML VIAL IV NR (11:39)
[2024-05-16 11:55] LABS: Basophils # (A) 0.1 k/uL (0-0.2); Basophils % (A) 1 %; Eosinophils # (A) 0.6 k/uL (0-0.7); Eosinophils % (A) 5 %; HCT 38.5 % (39.0-53.0); Lymphocytes # (A) 3.3 k/uL (1.0-4.8); Lymphocytes % (A) 26 %; MCH 28.2 pg (25.0-35.0); MCHC 33.7 g/dL (31.0-37.0); MCV 83.7 fL (80.0-100.0); Mean Platelet Volume 8.1; Monocytes # (A) 0.7 k/uL (0-1.0); Monocytes % (A) 6 %; Neutrophils # (A) 7.8 k/uL (1.3-7.7); Neutrophils % (A) 61 %; Platelet Count 225 k/uL (150-450); WBC 12.8 k/uL (3.8-10.6)
[2024-05-16] MEDS: INFLIXIMAB-DYYB 700 MG in SODIUM CHLORIDE 0.9% 180 ML IV NR (12:05)
[2024-05-16 12:32] LABS: INR 1.2 (<1.2); Prothrombin Time 12.7 sec (10.0-12.5)
[2024-05-16 12:46] LABS: ALT 29 U/L (4-49); AST 37 U/L (17-59); African American GFR (CKD) 89 (>60 ml/min/1.73 sqM); Albumin 4.4 g/dL (3.5-5.0); Alkaline Phosphatase 57 U/L (38-126); Anion Gap 13 mmol/L; Bilirubin,Unconjugated 0.4 mg/dL (0.0-1.1); Blood Urea Nitrogen 16 mg/dL (9-20); Carbon Dioxide 24 mmol/L (22-30); Chloride 101 mmol/L (98-107); Glucose 131 mg/dL (74-99); Non-African American GFR(CKD) 77 (>60 ml/min/1.73 sqM); Potassium 3.5 mmol/L (3.5-5.1); Sodium 138 mmol/L (137-145); Total Bilirubin 0.4 mg/dL (0.2-1.3); Total Protein 7.7 g/dL (6.3-8.2)
[2024-05-16 12:57] VITALS: BP 105/67; PULSE 75
== END ==
LOC: PROCWHC3 11:02
PROVIDERS: ATTEND Internal Medicine
DX: K50.813 Crohn's disease of both small and large intestine with fistula (principal); K74.00 Hepatic fibrosis, unspecified; K76.0 Fatty (change of) liver, not elsewhere classified; Z51.81 Encounter for therapeutic drug level monitoring; Z88.1 Allergy status to other antibiotic agents; Z88.5 Allergy status to narcotic agent; Z88.6 Allergy status to analgesic agent; Z88.7 Allergy status to serum and vaccine; Z88.8 Allergy status to other drugs, medicaments and biological substances; Z91.041 Radiographic dye allergy status
CPT/HCPCS: 80048; 80076; 85025; 85610; 82105; 96375; 96413; 96415; J1720; Q5103

== ENCOUNTER → 2024-08-08 | Outpatient (CLI) | payer MEDICARE, SELFPAY ==
[2024-08-08 11:09] VITALS: RESP 18; TEMP 97.7
[2024-08-08] MEDS: LORATADINE 10 MG TAB PO NR (11:13)
[2024-08-08] MEDS: ACETAMINOPHEN TAB 325 MG TAB PO NR (11:13)
[2024-08-08] MEDS: HYDROCORTISONE SUCCINATE 100 MG/2 ML VIAL IVP NR (11:18)
[2024-08-08] MEDS: INFLIXIMAB-DYYB 700 MG in SODIUM CHLORIDE 0.9% 180 ML IV NR (11:45)
[2024-08-08 12:56] VITALS: BP 116/73; PULSE 68
[2024-08-08] MEDS: SODIUM CHLORIDE 0.9% 500 ML 500 ML in EMPTY BAG 1 BAG IV PRN (12:56)
== END ==
LOC: PROCWHC3 10:55
PROVIDERS: ATTEND Internal Medicine
DX: K50.813 Crohn's disease of both small and large intestine with fistula (principal); Z88.1 Allergy status to other antibiotic agents; Z88.5 Allergy status to narcotic agent; Z88.6 Allergy status to analgesic agent; Z88.7 Allergy status to serum and vaccine; Z88.8 Allergy status to other drugs, medicaments and biological substances; Z91.041 Radiographic dye allergy status
CPT/HCPCS: 86140; 96375; 96413; 96415; J1720; Q5103

== ENCOUNTER → 2024-09-19 | Outpatient (CLI) | payer MEDICARE, SELFPAY ==
[2024-09-19 11:38] VITALS: RESP 16; TEMP 98.2
[2024-09-19] MEDS: SODIUM CHLORIDE 0.9% 500 ML 500 ML in EMPTY BAG 1 BAG IV PRN (11:40)
[2024-09-19] MEDS: HYDROCORTISONE SUCCINATE 100 MG/2 ML VIAL IVP NR (11:40)
[2024-09-19] MEDS: LORATADINE 10 MG TAB PO NR (11:43)
[2024-09-19] MEDS: ACETAMINOPHEN TAB 325 MG TAB PO NR (11:43)
[2024-09-19] MEDS: INFLIXIMAB-DYYB 700 MG in SODIUM CHLORIDE 0.9% 180 ML IV NR (12:03)
[2024-09-19 13:05] VITALS: BP 108/69; PULSE 66
== END | disposition home or self-care (01) ==
LOC: PROCWHC3 11:22
PROVIDERS: ATTEND Internal Medicine
DX: K50.813 Crohn's disease of both small and large intestine with fistula (principal); Z88.1 Allergy status to other antibiotic agents; Z88.2 Allergy status to sulfonamides; Z88.5 Allergy status to narcotic agent; Z88.6 Allergy status to analgesic agent; Z88.7 Allergy status to serum and vaccine; Z91.041 Radiographic dye allergy status; Z88.8 Allergy status to other drugs, medicaments and biological substances
CPT/HCPCS: 86140; 96375; 96413; 96415; J1720; Q5103

== ENCOUNTER → 2024-10-31 | Outpatient (CLI) | payer MEDICARE, SELFPAY ==
[2024-10-31 11:47] VITALS: RESP 16; TEMP 98.4
[2024-10-31] MEDS: ACETAMINOPHEN TAB 325 MG TAB PO NR (11:49)
[2024-10-31] MEDS: LORATADINE 10 MG TAB PO NR (11:50)
[2024-10-31] MEDS: HYDROCORTISONE SUCCINATE 100 MG/2 ML VIAL IVP NR (11:59)
[2024-10-31] MEDS: SODIUM CHLORIDE 0.9% 500 ML 500 ML in EMPTY BAG 1 BAG IV PRN (12:00)
[2024-10-31] MEDS: INFLIXIMAB-DYYB 700 MG in SODIUM CHLORIDE 0.9% 180 ML IV NR (12:06)
[2024-10-31 12:10] LABS: Basophils # (A) 0.08 10*3/uL (0.00-0.10); Basophils % (A) 0.9 %; Eosinophils % (A) 6.5 %; HCT 41.9 % (39.6-50.0); HGB 13.9 g/dL (13.0-17.0); Lymphocytes # (A) 2.15 10*3/uL (0.90-5.00); Lymphocytes % (A) 23.4 %; MCH 27.6 pg (27.0-32.0); MCHC 33.2 g/dL (32.0-37.0); MCV 83.1 fL (80.0-97.0); Monocytes # (A) 0.82 10*3/uL (0.20-1.00); Monocytes % (A) 8.9 %; Platelet Count 218 10*3/uL (140-440); RBC 5.04 10*6/uL (4.40-5.60); RDW 13.8 % (11.5-14.5); WBC 9.18 10*3/uL (4.50-10.00)
[2024-10-31 12:39] LABS: ALT 38 U/L (4-49); AST 45 U/L (17-59); African American GFR (CKD) >90 (>60 ml/min/1.73 sqM); Albumin 4.2 g/dL (3.5-5.0); Alkaline Phosphatase 87 U/L (38-126); Anion Gap 10 mmol/L; Blood Urea Nitrogen 12 mg/dL (9-20); Calcium 9.5 mg/dL (8.4-10.2); Carbon Dioxide 28 mmol/L (22-30); Chloride 101 mmol/L (98-107); Glucose 185 mg/dL (74-99); Non-African American GFR(CKD) 90 (>60 ml/min/1.73 sqM); Potassium 3.5 mmol/L (3.5-5.1); Sodium 139 mmol/L (137-145); Total Bilirubin 0.5 mg/dL (0.2-1.3); Total Protein 7.7 g/dL (6.3-8.2)
[2024-10-31 12:55] LABS: C Reactive Protein 0.9 mg/dL (<1.0)
[2024-10-31 13:12] VITALS: BP 111/70; PULSE 74
== END ==
LOC: PROCWHC3 11:24
PROVIDERS: ATTEND Internal Medicine
DX: K50.813 Crohn's disease of both small and large intestine with fistula (principal); Z51.81 Encounter for therapeutic drug level monitoring; Z88.1 Allergy status to other antibiotic agents; Z88.2 Allergy status to sulfonamides; Z88.5 Allergy status to narcotic agent; Z88.7 Allergy status to serum and vaccine; Z88.8 Allergy status to other drugs, medicaments and biological substances; Z91.041 Radiographic dye allergy status
CPT/HCPCS: 80053; 85025; 86140; 96375; 96413; 96415; J1720; Q5103

== ENCOUNTER → 2024-11-20 | Outpatient (CLI) | payer MEDICARE, SELFPAY ==
--- NOTE | 2024-11-20 08:55 | US ---
EXAMINATION TYPE: US liver DATE OF EXAM: 11/20/2024 COMPARISON: Ultrasound CLINICAL INDICATION: Male, 44 years old with history of K76.0 FATTY (CHANGE OF) LIVER, NOT ELSEWHERE CLASS; hx gallstones TECHNIQUE: Grayscale and color Doppler imaging of the right upper quadrant was performed. FINDINGS: EXAM MEASUREMENTS: Liver Length: 16.1 cm Gallbladder Wall: 0.1 cm CBD: 0.4 cm Right Kidney: 10.4 x 4.9 x 3.3 cm SISAL OPERATOR NOTES:Limited due to overlying bowel gas Pancreas: Head and tail obscured by overlying bowel gas, echogenic in appearance Liver: Appears slightly heterogenous and coarse. Left lobe not well seen due to bowel gas Gallbladder: Multiple echogenic foci Evidence for sonographic Chávez's sign: neg CBD: wnl Right Kidney: No hydronephrosis or masses seen 1. IMPRESSION: 2. No evidence for acute process. 3. Hepatic steatosis. 4. Cholelithiasis. [facility], , 11/20/2024 8:52 AM
== END | disposition home or self-care (01) ==
LOC: RADUSWWP 08:09
PROVIDERS: ATTEND Physician Assistant
DX: Z12.9 Encounter for screening for malignant neoplasm, site unspecified (principal); K75.81 Nonalcoholic steatohepatitis (NASH); K80.20 Calculus of gallbladder without cholecystitis without obstruction
CPT/HCPCS: 76705

== ENCOUNTER → 2024-11-28 | Outpatient (CLI) | payer MEDICARE, SELFPAY ==
[2024-11-29 04:39] LABS: INR 1.0 sec (0.93-1.11); Prothrombin Time 11.4 sec (9.9-11.9)
== END | disposition home or self-care (01) ==
LOC: LABWHC1 16:20
PROVIDERS: ATTEND Physician Assistant
DX: K75.81 Nonalcoholic steatohepatitis (NASH) (principal); K74.00 Hepatic fibrosis, unspecified
CPT/HCPCS: 36415; 82105; 85610